=== PATIENT | female | born 1940 | race Caucasian/White ===

== ENCOUNTER → 2024-11-23 | Outpatient (CLI) | payer MEDICARE, SELFPAY ==
[2024-11-23 14:58] LABS: Collection Type, Urine Clean Catch; Squamous Epithelial Cell,Urine 0 /hpf (0-5)
[2024-11-23 15:32] LABS: Basophils % (Auto) 0 % (0-2.5); Eosinophils # (Auto) 0.1 Thou/mm3 (0.0-0.5); Eosinophils % (Auto) 1 % (0-10); Hematocrit 33.5 % (36.0-46.0); Immature Granulocytes % (Auto) 0 % (0-0); Immature Granulocytes Auto 0.03 Thou/mm3 (0.00-0.00); Lymphocytes # (Auto) 3.4 Thou/mm3 (1.0-4.8); Lymphocytes % (Auto) 44 % (10-50); Mean Corpuscular HGB Conc 32.8 g/dl (31.0-37.0); Mean Corpuscular Hemoglobin 32.1 pg (25.0-35.0); Mean Corpuscular Volume 98 fL (80-100); Monocytes # (Auto) 0.4 Thou/mm3 (0.0-0.8); Monocytes % (Auto) 6 % (0-12); Neutrophils # (Auto) 3.9 Thou/mm3 (1.8-7.7); Neutrophils % (Auto) 49 % (37-80); Nucleated Red Blood Cell % 0 /100 WBC (0); Platelet Count 281 Thou/mm3 (140-440); RDW Standard Deviation 49.6 fL (36.4-46.3); Red Blood Count 3.43 Miln/mm3 (4.00-5.20); White Blood Count 7.8 Thou/mm3 (3.6-11.0)
[2024-11-23 15:35] LABS: Bilirubin,Urine Negative (Negative); Blood,Urine Negative (Negative); Clarity,Urine Clear (Clear/Hazy); Color,Urine Yellow (Lt Yel-Yel); Glucose, Urine Negative (Negative); Ketones,Urine Negative (Negative); Leukocyte Esterase,Urine Positive (Negative); Nitrite,Urine Negative (Negative); PH,Urine 6.5 (5.0-7.0); Protein,Urine Negative (Neg - Trace); RBC,Urine 5 /hpf (0-3); Specific Gravity,Urine 1.017 (1.001-1.035); Urobilinogen,Urine Negative mg/dL (0.0-1.0); WBC,Urine 5 /hpf (0-5)
[2024-11-23 15:41] LABS: Parathyroid Hormone Intact 57.5 pg/ml (18.5-88.0)
[2024-11-23 15:49] LABS: Albumin, Serum 4.6 gm/dL (3.4-4.8); Anion Gap 7 (7-16); BUN/Creatinine Ratio 41 Ratio (12-20); Blood Urea Nitrogen 37 mg/dL (9-23); Calcium 9.5 mg/dL (8.3-10.6); Calcium (Corrected) 9.5 mg/dL (8.5-10.1); Carbon Dioxide 30.3 mMol/L (20.0-31.0); Chloride 103 mMol/L (98-107); Creatinine (Component) 0.9 mg/dL (0.6-1.3); Glucose 82 mg/dL (74-106); Osmolality,Calculated 287 (275-295); Phosphorous 4.2 mg/dL (2.4-5.1); Potassium 4.6 mMol/L (3.4-5.1); Sodium 140 mMol/L (136-145); eGFR > 60 See Note
[2024-11-23 15:54] LABS: Vitamin D 25 Hydroxy Total 58.7 ng/mL (7.3-40.2)
== END | disposition home or self-care (01) ==
LOC: COPL 13:50
PROVIDERS: PCP Family Medicine; Referring Provider Internal Medicine Nephrology; Visit Provider Internal Medicine Nephrology
DX: N18.31 Chronic kidney disease, stage 3a (principal); M19.90 Unspecified osteoarthritis, unspecified site; M54.9 Dorsalgia, unspecified
CPT/HCPCS: 36415; 80069; 81001; 82306; 83970; 85025

== ENCOUNTER → 2025-02-17 | Outpatient (CLI) | payer MEDICARE, SELFPAY ==
[2025-02-17 16:34] LABS: Basophils % (Auto) 1 % (0-2.5); Eosinophils # (Auto) 0.2 Thou/mm3 (0.0-0.5); Eosinophils % (Auto) 3 % (0-10); Hematocrit 36.7 % (36.0-46.0); Hemoglobin 11.9 g/dL (12.0-16.0); Immature Granulocytes % (Auto) 0 % (0-0); Immature Granulocytes Auto 0.02 Thou/mm3 (0.00-0.00); Lymphocytes # (Auto) 2.5 Thou/mm3 (1.0-4.8); Lymphocytes % (Auto) 33 % (10-50); Mean Corpuscular HGB Conc 32.4 g/dl (31.0-37.0); Mean Corpuscular Hemoglobin 31.7 pg (25.0-35.0); Mean Corpuscular Volume 98 fL (80-100); Monocytes # (Auto) 0.4 Thou/mm3 (0.0-0.8); Monocytes % (Auto) 5 % (0-12); Neutrophils # (Auto) 4.5 Thou/mm3 (1.8-7.7); Neutrophils % (Auto) 59 % (37-80); Nucleated Red Blood Cell % 0 /100 WBC (0); Platelet Count 341 Thou/mm3 (140-440); RDW Standard Deviation 46.6 fL (36.4-46.3); Red Blood Count 3.75 Miln/mm3 (4.00-5.20); White Blood Count 7.7 Thou/mm3 (3.6-11.0)
[2025-02-17 16:53] LABS: Alanine Aminotransferase 13 U/L (10-49); Albumin, Serum 4.4 gm/dL (3.4-4.8); Albumin/Globulin Ratio 1.6 (1.2-2.2); Alkaline Phosphatase 79 U/L (46-116); Anion Gap 7 (7-16); Aspartate Amino Transferase 23 U/L (0-34); BUN/Creatinine Ratio 23 Ratio (12-20); Bilirubin,Total 0.2 mg/dL (0.3-1.2); Blood Urea Nitrogen 25 mg/dL (9-23); Calcium 9.4 mg/dL (8.3-10.6); Calcium (Corrected) 9.4 mg/dL (8.5-10.1); Carbon Dioxide 28.6 mMol/L (20.0-31.0); Chloride 106 mMol/L (98-107); Creatinine (Component) 1.1 mg/dL (0.6-1.3); Globulin 2.7 gm/dL (2.3-3.5); Glucose 111 mg/dL (74-106); Osmolality,Calculated 288 (275-295); Potassium 4.4 mMol/L (3.4-5.1); Sodium 142 mMol/L (136-145); Total Protein 7.1 gm/dL (5.7-8.2); eGFR 50 See Note
== END | disposition home or self-care (01) ==
LOC: COPL 15:00
PROVIDERS: PCP Family Medicine; Referring Provider Student in an Organized Health Care Education/Training Program; Visit Provider Internal Medicine
DX: R13.19 Other dysphagia (principal); R11.2 Nausea with vomiting, unspecified; R42 Dizziness and giddiness
CPT/HCPCS: 36415; 80053; 85025

== ENCOUNTER → 2025-03-03 | Outpatient (CLI) | payer MEDICARE, SELFPAY ==
--- NOTE | 2025-03-03 12:00 | XR_ITS ---
Examination: CT abdomen and pelvis without contrast. Coronal 3-D reconstructions. Sagittal 2-D reconstructions. Date and time of exam:March 03, 2025 1255 hours Comparison April 28, 2024 INDICATIONS: Nausea vomiting beginning last month CTDI: vol (mGy): 4.88 DLP: (mGycm): 201 Technique: Axial images of the abdomen have been obtained, 3 mm slice thickness Intravenous contrast material has not been administered. Low dose protocols were performed. One or more of the following dose reduction techniques were used; automated exposure control, adjustment of the mA and/or KV according to patient size, use of iterative reconstruction technique. Findings: No focal liver or splenic lesion No pancreatic mass Multiple gallstones Gallbladder wall does not appear thickened Heavy abdominal aortic calcification No bowel obstruction No pericecal inflammatory change Colonic diverticulosis, no diverticulitis Intact urinary bladder Left hip arthroplasty generates artifacts in the pelvis IMPRESSION: Cholelithiasis, consider hepatobiliary sonography follow-up
--- NOTE | 2025-03-03 12:30 | XR_ITS ---
Examination: Carotid arterial duplex scan, ultrasound. Date and time of exam: March 03, 2025 1142 hours INDICATIONS: Dizziness episodes beginning a few months ago Technique: Multiple sonographic images have been obtained of the carotid arteries and vertebral arteries, B-mode/grayscale imaging and Doppler spectral analysis and color flow Peak systolic and diastolic velocities have been recorded. Systolic diastolic ratios have been calculated. Findings: Right peak systolic velocities: Distal internal carotid artery peak systolic velocity is 0.4 M/sec Proximal internal carotid artery peak systolic velocity is 0.4 M/sec Carotid bifurcation peak systolic velocity is 0.7 M/sec External carotid artery peak systolic velocity is 0.9 M/sec Vertebral artery flow is antegrade. Left peak systolic velocities: Distal internal carotid artery peak systolic velocity is 0.6 M/sec Proximal internal carotid artery peak systolic velocity is 0.5 M/sec Carotid bifurcation peak systolic velocity is 0.5 M/sec External carotid artery peak systolic velocity is 1.0 M/sec Vertebral artery flow is antegrade Doppler waveform analysis demonstrates no spectral broadening Impression: Right internal carotid artery demonstrates 0-10% stenosis. Left internal carotid artery demonstrates 0-10% stenosis.
== END | disposition home or self-care (01) ==
PROVIDERS: PCP Internal Medicine; Referring Provider Internal Medicine; Visit Provider Internal Medicine
DX: R13.19 Other dysphagia (principal); R11.2 Nausea with vomiting, unspecified; R42 Dizziness and giddiness; K80.20 Calculus of gallbladder without cholecystitis without obstruction
CPT/HCPCS: 74176; 93880

== ENCOUNTER → 2025-05-02 | Outpatient (CLI) | payer MEDICARE, SELFPAY ==
--- NOTE | 2025-05-02 14:18 | XR_ITS ---
EXAMINATION: Cervical spine, 5 views Technique: Cervical spine AP, AP odontoid, lateral, bilateral obliques, 5 views Exam date and time: May 02, 2025 1434 hours Comparison December 30, 2019 INDICATIONS: Neck pain several years. FINDINGS: Straightening normal cervical lordosis 3 mm anterolisthesis C2 on C3 No cervical fracture Intact odontoid Advanced degenerative disc disease C3-C4, C5-C6, C6-C7 with posterior osteophyte formation Significant bilateral neural foraminal stenosis at these levels IMPRESSION: Advanced degenerative disc disease C3-C4, C5-C6, C6-C7 with significant bilateral neural foraminal stenosis at these levels
== END | disposition home or self-care (01) ==
LOC: CDIM 14:09
PROVIDERS: PCP Family Medicine; Referring Provider Internal Medicine; Visit Provider Internal Medicine
DX: M50.31 Other cervical disc degeneration, high cervical region (principal); M48.02 Spinal stenosis, cervical region
CPT/HCPCS: 72050

== ENCOUNTER 2025-05-09 18:16 | Inpatient (IN) | payer MEDICARE, SELFPAY ==
[2025-05-09 18:26] VITALS: BP 207/102; PULSE 95; RESP 17; RESP 18; TEMP 37.6; O2SAT 93; O2SAT 95; BMI 17.9
--- NOTE | 2025-05-09 18:36 | EKG_ITS ---
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1940 Requested By: ED Temporary Provider Order Number: [id number] Reading MD: ED Temporary Provider Measurements Intervals [place] Rate: 78 P: 135 RI: 136 QRS: -21 QRSD: 101 T: 78 QT: 376 QTc: 431 Interpretive Statements ECTOPIC ATRIAL RHYTHM POSSIBLE LEFT ATRIAL ENLARGEMENT [-0.1mV P-WAVE IN V1/V2] INCOMPLETE RIGHT BUNDLE BRANCH BLOCK [90+ ms QRS DURATION, TERMINAL R IN V1/V2, 40+ ms S IN I/aVL/V4/V5/V6] PROBABLE LATERAL MYOCARDIAL INFARCTION , OF INDETERMINATE AGE [35 ms Q WAVE IN I/aVL/V5/V6] Compared to ECG 12/30/2023 11:52:09 Ectopic atrial rhythm now present Incomplete right bundle-branch block now present Myocardial infarct finding now present Sinus rhythm no longer present /store/S0/[id number]/ecg/[id number].pdf
--- NOTE | 2025-05-09 18:46 | PD.EDWEAK ---
ED Weakness RME/HPI General Chief complaint: Nausea/Vomiting/Diarrhea Stated complaint: GENERALIZED WEAKNESS Time Seen by Provider: 05/09/25 18:40 Arrival date/time: 05/09/25 18:16 RME / HPI RME / HPI Narrative: This section includes all my notes and documentations, including HPI, PE, and ED course. Dung Barragan MD HPI: 85 y/o female with Hx of Hypercholesterolemia and Hyperthyroidism BIBA from home presents with fever, chills, and weakness x 4 days. Denies cough, runny nose, dysuria, and diarrhea. No other complaints. ROS: All negative except as documented in HPI. Physical Exam: General: Alert and oriented. Appearance of severe malaise noted. Fever noted. Eyes: Conjunctivae and lids clear. ENT: No nasal congestion. Neck: Supple. Heart: RRR. Lungs: No respiratory distress. Good air movement with scattered rhonchi. Abdomen: Soft and nontender. Normal bowel sounds. No distension. No rebound or guarding. Back: No CVA tenderness. Skin: Warm and dry. Neuro: Alert and oriented X 3. I reviewed EMS notes. I reviewed all diagnostic test results: My interpretation of the EKG is: Sinus rhythm (78 bpm) with nonspecific ST-T changes. My interpretation of the chest x-ray is increased bronchial markings. Blood tests remarkable for WBC 13.4, ESR 86, CRP 29.1, procalcitonin 2.28. UA showed positive nitrite, leukocyte Estrace, 39 RBC, 142 WBC. Covid/Influenza: Negative. At this point, diagnoses include: Sepsis, UTI, lower respiratory infection. Treatment here included: IVF, Zofran 4 mg, Rocephin 1 G, Toradol 12 mg, Tylenol 1 g IV, and Zithromax 500 mg IV. Some improvement noted. 2016: I discussed the case with our hospitalist. About the presentation and exam and diagnostics and treatments here. And need of further care in the hospital. Will accept the patient. Dung Barragan MD Related Data Home Medications ?Medication ?Instructions ?Recorded ?Confirmed calcium 600 mg (as 1 tab PO QDAY 03/22/19 12/30/20 carbonate)-vitamin D3 5 mcg (200 unit) tablet (Calcium 600 + D(3)) krill 300 mg-omega 3 90 mg-dha 24 1 cap PO QDAY 03/22/19 12/30/20 mg-epa 50 [id number] capsule (MegaRed [place]-3 Krill Oil) simvastatin 40 mg tablet 40 mg PO QPM 03/22/19 12/30/20 levothyroxine 88 mcg tablet 88 mcg PO QDAY 05/13/19 12/30/20 multivitamin (Multiple Vitamins 1 tab PO QDAY 05/13/19 12/30/20 tablet) sertraline 100 mg tablet 200 mg PO QDAY 05/16/19 12/30/20 aspirin 81 mg tablet 81 mg PO QDAY 12/30/20 12/30/20 Previous Rx's ?Medication ?Instructions ?Recorded albuterol sulfate 90 mcg/actuation 2 puff INH Q4H PRN Shortness Of 01/01/21 aerosol inhaler (Ventolin HFA) Breath #1 g alprazolam 0.25 mg tablet 1 mg (4 x 0.25 mg) PO HS PRN 01/01/21 Anxiety #0 tabs cefpodoxime 200 mg tablet 200 mg PO BID #6 tabs 01/01/21 dexamethasone 6 mg tablet 6 mg PO QDAY #5 tabs 01/01/21 Allergies Allergy/AdvReac Type Severity Reaction Status Date / Time No Known Allergies Allergy Verified 05/09/25 18:32 Review of Systems Review of Systems Systems Reviewed: All systems reviewed, normal except as documented Past Medical History Past Medical History CARDIAC: Positive Cardiac Disorders and Hypercholesterolemia REPRODUCTIVE: Positive Endometriosis and Previous Pregnancies MUSCULOSKELETAL: Positive Musculoskeletal Disorders, Arthritis, Osteoporosis and Scoliosis ENT: Positive Cataracts ENDOCRINE: Positive Endocrine Disorders, Hyperthyroidism and Hypothyroidism PSYCHO/SOCIAL: Positive Depression and Anxiety OTHER HISTORY: Positive Falls, Chicken Pox, Measles and Mumps Family History FAMILY HISTORY: Positive Family Cardiac Disorders and Family Cancer Surgical History SURGICAL: Positive Hysterectomy Social History SECOND HAND EXPOSURE: Yes ED Exam Narrative Physical exam: Refer to HPI Course Course Course Narrative: CXR is ordered for determining the etiology of shortness of breath. Quality Measures none Orders Category Date Time Status Bedside COVID-19 Antigen Test NOW Care 05/09/25 18:47 Active Bedside Influenza A&B Antigen Test NOW Care 05/09/25 18:47 Completed COVID-19 Screening Questionnaire NOW Care 05/09/25 20:51 Active Decision to Admit X1 Care 05/09/25 20:51 Active EKG (ED ONLY) *Do not use* NOW Care 05/09/25 18:36 Completed In and Out Catheter X1 Care 05/09/25 19:02 Completed Miscellaneous Nursing Order NOW Care 05/09/25 18:47 Active Saline [Insert IV] NOW Care 05/09/25 18:47 Completed Straight [In and Out Catheter] X1 Care 05/09/25 18:47 Completed EKG (ED Only) Stat Exams 05/09/25 18:36 Draft XR chest 1V portable Stat Exams 05/09/25 18:51 Completed Amylase Stat Lab 05/09/25 19:21 Completed BNP [B-Type Natriuretic Peptide] Stat Lab 05/09/25 19:21 Completed Beta Hydroxybutyrate Stat Lab 05/09/25 19:21 Completed Bilirubin,Direct Stat Lab 05/09/25 19:21 Completed Blood Culture (Lab) Stat Lab 05/09/25 19:29 Received CBC Stat Lab 05/09/25 19:21 Completed CMP [Comprehensive Metabolic Panel] Stat Lab 05/09/25 19:21 Completed CRP [C-Reactive Protein] Stat Lab 05/09/25 19:21 Completed ESR [Sed Rate (ESR)] Stat Lab 05/09/25 19:21 Completed Free T4 (Free Thyroxine) Stat Lab 05/09/25 19:21 Completed Lactate (Lactic Acid) Stat Lab 05/09/25 19:21 Completed Lipase Stat Lab 05/09/25 19:21 Completed Magnesium Stat Lab 05/09/25 19:21 Completed Procalcitonin Stat Lab 05/09/25 19:21 Completed TSH [Thyroid Stimulating Hormone] Stat Lab 05/09/25 19:21 Completed Troponin I Stat Lab 05/09/25 19:21 Completed UA, C/S IF [Urinalysis, C/S if Indicated] Stat Lab 05/09/25 19:06 Completed Urine Culture Stat Lab 05/09/25 19:06 Received Acetaminophen Ivpb [Ofirmev Inj] Med 05/09/25 19:24 Discontinued 1,000 mg in 100 ml IV X1 Azithromycin Inj [Zithromax Inj] 500 mg Med 05/09/25 20:11 Discontinued Sodium Chloride 0.9% 250 ml [Ns] 250 ml IV X1 Ketorolac Inj [Toradol Inj] Med 05/09/25 19:24 Discontinued 12 mg IVP X1 ONE Ondansetron Inj [Zofran Inj] Med 05/09/25 18:47 Discontinued 4 mg IVP X1 ONE Sodium Chloride 0.9% 1000 ml [Ns] 1,000 ml Med 05/09/25 18:47 Discontinued IV 999 mls/hr Sodium Chloride 0.9% 250 ml [Ns] 250 ml Med 05/09/25 18:50 Discontinued IV 1,000 mls/hr cefTRIAXone/D5w 1gm IV premix [Rocephin/D5w 1gm IV Med 05/09/25 18:47 Discontinued premix] 1 gm in 50 ml IV X1 cloNIDine HCL [Catapres] Med 05/09/25 18:50 Discontinued 0.2 mg PO X1 ONE Vital Signs Vital signs: Vital Signs Temperature 99.7 F 05/09/25 18:26 Respiratory Rate 17 05/09/25 18:26 Blood Pressure 207/102 H 05/09/25 18:26 Pulse Oximetry (%) 93 L 05/09/25 18:26 Weakness MDM Narrative MDM Narrative:: Scribe Attestation: Margoth John am scribing for and in the presence of Dr. Barragan. Provider Notation: Although this document has been carefully reviewed, there may still be some phonetic and other typographical errors.? These errors are purely grammatical due to imperfections in the software program and should not be construed in any way to? compromise the substance of the patient's medical care during this visit. 85 y/o female with Hx of Hypercholesterolemia and Hyperthyroidism BIBA from home presents with fever, chills, and weakness x 4 days. Denies cough, runny nose, dysuria, and diarrhea. No other complaints. Patient data External records reviewed:: [facility] previous records (No recent ED records available for review.) and EMS form Clinical information provided by:: patient and EMS Social determinants that could affect healthcare access:: none Patient has the following chronic illnesses:: Hypercholesterolemia, Endometriosis, Arthritis, Osteoporosis, Scoliosis, Cataracts, Hyperthyroidism, Hypothyroidism, Depression and Anxiety How is presenting disease/condition affected by chronic disease/condition?: exacerbated by Evaluation data The following diagnostics were reviewed and interpreted by me:: lab results, radiology exam(s) and EKG tracing(s) (My interpretation of the EKG is: Sinus rhythm (78 bpm) with nonspecific ST-T changes. Dung Barragan MD) Lab and/or radiology exams considered but not ordered:: None Interpretation Summary: I reviewed all diagnostic test results: My interpretation of the EKG is: Sinus rhythm (78 bpm) with nonspecific ST-T changes. My interpretation of the chest x-ray is increased bronchial markings. Blood tests remarkable for WBC 13.4, ESR 86, CRP 29.1, procalcitonin 2.28. UA showed positive nitrite, leukocyte Estrace, 39 RBC, 142 WBC. Covid/Influenza: Negative. Medications / Prescriptions Medications or Prescriptions considered but not ordered:: None Medication administrations:: Medication Administration History Discontinued Medications Clonidine (Clonidine Hcl 0.1 Mg Tablet) 0.2 mg PO X1 ONE Stop: 05/09/25 18:51 Last Admin: 05/09/25 19:27 Dose: Not Given Documented By: ZENOBIA Non-Admin Reason: Vital Signs Ceftriaxone Sodium/Dextrose (Rocephin/D5w 1gm Iv Premix) 1 gm in 50 mls @ 100 mls/hr IV X1 ONE Stop: 05/09/25 19:16 Last Infusion: 05/09/25 20:48 Dose: Infused Documented By: Admin: 05/09/25 20:05 Dose: 100 mls/hr Documented By: ZENOBIA Sodium Chloride (Ns) 1,000 mls @ 999 mls/hr IV .Q1H1M ONE Stop: 05/09/25 19:47 Last Infusion: 05/09/25 20:48 Dose: Infused Documented By: Admin: 05/09/25 19:39 Dose: 999 mls/hr Documented By: ZENOBIA Sodium Chloride (Ns) 250 mls @ 1,000 mls/hr IV .Q15M ONE Stop: 05/09/25 19:04 Last Infusion: 05/09/25 20:10 Dose: Infused Documented By: Admin: 05/09/25 19:39 Dose: 1,000 mls/hr Documented By: ZENOBIA Acetaminophen (Ofirmev Inj) 1,000 mg in 100 mls @ 250 mls/hr IV X1 ONE Stop: 05/09/25 19:47 Last Infusion: 05/09/25 20:10 Dose: Infused Documented By: Admin: 05/09/25 19:46 Dose: 250 mls/hr Documented By: ZENOBIA Azithromycin 500 mg/ Sodium (Chloride) 250 mls @ 250 mls/hr IV X1 ONE Stop: 05/09/25 21:10 Last Admin: 05/09/25 20:56 Dose: 250 mls/hr Documented By: ZENOBIA Ketorolac Tromethamine (Ketorolac Inj 30 Mg/Ml Vial) 12 mg IVP X1 ONE Stop: 05/09/25 19:25 Last Admin: 05/09/25 19:44 Dose: 12 mg Documented By: ZENOBIA Ondansetron HCl (Ondansetron Inj 2 Mg/Ml Inj 2 Ml) 4 mg IVP X1 ONE; Protocol Stop: 05/09/25 18:48 Last Admin: 05/09/25 19:40 Dose: Not Given Documented By: ZENOBIA Non-Admin Reason: Patient Refused Treatment here from me included: IVF, Zofran 4 mg, Rocephin 1 G, Toradol 12 mg, Tylenol 1 g IV, and Zithromax 500 mg IV. Consultations Consultation(s) initiated? (list below): Yes Consultation #1 (Physician, Specialty, Details): 2016: I discussed the case with our hospitalist. About the presentation and exam and diagnostics and treatments here. And need of further care in the hospital. Will accept the patient. Diagnosis Weakness Differential Diagnosis: acute myocardial infarction, anemia, hypoglycemia, hypothyroidism, rhabdomyolysis, sepsis, dehydration and other (UTI, pneumonia, COVID, influenza, electrolyte abnormalities) Most likely diagnosis given after review of the tests above:: Sepsis, UTI, low respiratory infection Admission Indicated Admission indicated?: indicated Explain why admission is indicated or not indicated:: Sepsis, UTI, low respiratory infection Admission Request Was there a request for admission?: Yes Admission Attestation Admission request attestation: Discussed case with Hospitalist service regarding admission. Discussed patients ED course, exam findings, labs, and radiology results. The Hospitalist [agrees] to accept the patient for admission. Disposition Plan Disposition Plan: Admit Discharge Plan Plan Patient Disposition: Admit Acute Care w/in Hospital Prescriptions/Referrals Prescriptions/Med Rec: No Action multivitamin [Multiple Vitamins] Tablet 1 tab PO QDAY levothyroxine 88 mcg Tablet 88 mcg PO QDAY sertraline 100 mg Tablet 200 mg PO QDAY calcium carbonate-vitamin D3 [Calcium 600 + D(3)] 600 mg(1,500mg) -200 unit Tablet 1 tab PO QDAY simvastatin 40 mg Tablet 40 mg PO QPM [id number] [MegaRed [place]-3 Krill Oil] [id number] mg Capsule 1 cap PO QDAY aspirin 81 mg Tablet 81 mg PO QDAY dexamethasone 6 mg Tablet 6 mg PO QDAY Qty: 5 0RF albuterol sulfate [Ventolin HFA] 90 mcg/actuation Hfa Aerosol Inhaler 2 puff INH Q4H PRN (Reason: Shortness Of Breath) Qty: 1 0RF cefpodoxime 200 mg tablet 200 mg PO BID Qty: 6 0RF Rx Instructions: Start 01/02/21. Must administer with a meal/food. alprazolam 0.25 mg Tablet 1 mg PO HS PRN (Reason: Anxiety) Qty: 0 0RF Referrals: Efrain Pride MD [Primary Care Provider] - In 1 week Problem List Clinical Impression: Sepsis, UTI (urinary tract infection), Lower respiratory infection Patient/Caregiver Discharge Instructions Print Language: Italian Stand Alone Forms: [employer] Award Info., Patient Portal Info Letter
--- NOTE | 2025-05-09 18:51 | XR_ITS ---
Examination: AP chest single view TECHNIQUE: Portable sitting AP chest single view Date and time: May 09, 2025, 1913 hours Comparison December 28, 2020 INDICATIONS: Coughing fever beginning 3 days ago. FINDINGS: Mild accentuation of basilar bronchovascular markings. No lobar pneumonia. Prominent lower thoracic dextroscoliosis. Normal heart size IMPRESSION: Basilar bronchitis pattern
[2025-05-09 18:55] VITALS: BP 152/68; PULSE 77; RESP 19; TEMP 39.1; O2SAT 94
[2025-05-09 19:23] LABS: Collection Type, Urine Clean Catch; Squamous Epithelial Cell,Urine 0 /hpf (0-5)
[2025-05-09 19:36] LABS: Bilirubin,Urine Negative (Negative); Blood,Urine 2+ (Negative); Clarity,Urine Turbid (Clear/Hazy); Color,Urine Lt-Yellow (Lt Yel-Yel); Culture Indicated,Urine Yes; Glucose, Urine Negative (Negative); Ketones,Urine 1+ (Negative); Leukocyte Esterase,Urine Positive (Negative); Nitrite,Urine Positive (Negative); PH,Urine 6.0 (5.0-7.0); Protein,Urine 1+ (Neg - Trace); RBC,Urine 39 /hpf (0-3); Specific Gravity,Urine 1.014 (1.001-1.035); Urobilinogen,Urine Negative mg/dL (0.0-1.0); WBC,Urine 142 /hpf (0-5)
[2025-05-09] MEDS: SODIUM CHLORIDE 0.9% 250 ML 250 ML 1000 ML IV (19:39)
[2025-05-09] MEDS: SODIUM CHLORIDE 0.9% 1000 ML 1,000 ML 999 ML IV (19:39)
[2025-05-09 19:42] LABS: Lactate (Lactic Acid) 1.1 mMol/L (0.4-2.0)
[2025-05-09 19:44] LABS: Basophils # (Auto) 0.0 Thou/mm3 (0.0-0.2); Basophils % (Auto) 0 % (0-2.5); Eosinophils # (Auto) 0.0 Thou/mm3 (0.0-0.5); Eosinophils % (Auto) 0 % (0-10); Hematocrit 32.8 % (36.0-46.0); Hemoglobin 11.3 g/dL (12.0-16.0); Immature Granulocytes Auto 0.13 Thou/mm3 (0.00-0.00); Lymphocytes # (Auto) 1.1 Thou/mm3 (1.0-4.8); Lymphocytes % (Auto) 8 % (10-50); Mean Corpuscular HGB Conc 34.5 g/dl (31.0-37.0); Mean Corpuscular Hemoglobin 32.7 pg (25.0-35.0); Mean Corpuscular Volume 95 fL (80-100); Monocytes # (Auto) 0.9 Thou/mm3 (0.0-0.8); Monocytes % (Auto) 7 % (0-12); Neutrophils # (Auto) 11.2 Thou/mm3 (1.8-7.7); Neutrophils % (Auto) 84 % (37-80); Nucleated Red Blood Cell # 0.00 Thou/mm3 (0.00-0.00); Nucleated Red Blood Cell % 0 /100 WBC (0); Platelet Count 221 Thou/mm3 (140-440); RDW Standard Deviation 46.5 fL (36.4-46.3); Red Blood Count 3.46 Miln/mm3 (4.00-5.20); White Blood Count 13.4 Thou/mm3 (3.6-11.0)
[2025-05-09] MEDS: KETOROLAC INJ 30 MG/ML VIAL 12 MG IVP (19:44)
[2025-05-09] MEDS: ACETAMINOPHEN IVPB 1,000 MG/100 ML VIAL 250 MG IV (19:46)
[2025-05-09 19:51] LABS: Beta Hydroxybutyrate 1.0 mmol/L (<0.6)
[2025-05-09 20:03] LABS: Sed Rate (ESR) 86 mm/hr (0-30)
[2025-05-09 20:04] LABS: B-Type Natriuretic Peptide 200 pg/mL (0-100)
[2025-05-09] MEDS: cefTRIAXone/D5w 1gm IV premix 1 GM/50 ML BAG IV (20:05)
[2025-05-09 20:21] LABS: Alanine Aminotransferase 12 U/L (10-49); Albumin, Serum 4.1 gm/dL (3.4-4.8); Albumin/Globulin Ratio 1.5 (1.2-2.2); Alkaline Phosphatase 68 U/L (46-116); Amylase 55 U/L (30-118); Anion Gap 12 (7-16); Aspartate Amino Transferase 23 U/L (0-34); BUN/Creatinine Ratio 18 Ratio (12-20); Bilirubin,Direct 0.2 mg/dL (0.0-0.3); Bilirubin,Total 0.6 mg/dL (0.3-1.2); Blood Urea Nitrogen 21 mg/dL (9-23); C-Reactive Protein 29.1 mg/dL (0.0-0.9); Calcium 9.2 mg/dL (8.3-10.6); Calcium (Corrected) 9.2 mg/dL (8.5-10.1); Carbon Dioxide 24.9 mMol/L (20.0-31.0); Chloride 101 mMol/L (98-107); Creatinine (Component) 1.2 mg/dL (0.6-1.3); Estimated Creatinine Clearance 24.2 mL/min (>60); Free T4 (Free Thyroxine) 1.56 ng/dL (0.89-1.76); Globulin 2.7 gm/dL (2.3-3.5); Glucose 124 mg/dL (74-106); Lipase 36 U/L (12-53); Magnesium 1.9 mg/dL (1.6-2.6); Osmolality,Calculated 279 (275-295); Potassium 3.8 mMol/L (3.4-5.1); Procalcitonin 2.28 ng/ml (0.0-0.49); Sodium 138 mMol/L (136-145); Thyroid Stimulating Hormone 0.99 uIU/mL (0.55-4.78); Total Protein 6.8 gm/dL (5.7-8.2); Troponin I 0.029 ng/mL (0.0-0.045); eGFR 45 See Note
[2025-05-09] MEDS: AZITHROMYCIN INJ 500 MG in SODIUM CHLORIDE 0.9% 250 ML 250 ML 250 MG IV (20:56)
--- NOTE | 2025-05-09 21:22 | PD.RESHP ---
Documentation for date of: 05/09/25 HPI History of Present Illness Chief complaint: Fever, urinary tract infection History of present illness: 85-year-old female with past medical history of hypothyroidism, depression/anxiety, hyperlipidemia, left hip replacement presenting to the ED on 05/09 with fever, weakness and increased urinary frequency. Patient's daughter is bedside and provides some history regarding her presentation. Apparently, patient had an appointment with Dr. Soto for a stress test on 05/04 and since that appointment she has been feeling more weak than normal. Patient does not have any cardiac history but states that her PCP just wanted her to get her heart checked. Patient's been having increased urinary frequency and states that she is not able to keep her urine inside. She also attributes to 2 days of fever and increased weakness. Normally, patient is able to ambulate using a walker but she has been largely bedbound since progression of symptoms. Medical history: As stated above Surgical history: Left hip replacement, total abdominal hysterectomy, no surgery Allergies: NKDA Medications: Pending med rec Family history: Noncontributory Social history: Patient lives at home with her son, denies any alcohol, tobacco or illicit drug use, able to ambulate using a walker ROS: All 12 systems assessed and the patient denies unless otherwise stated in HPI In the ED, patient initially presented hypertensive 207/102, regular heart rate, respiratory rate 17, mildly febrile 99.7 ?F, saturating 93 on room air. Pertinent lab findings included WBC of 13.4, hemoglobin 11.3 with MCV of 95, BUN 21, creatinine 1.2, glucose 124, lactic acid 1.1, troponin 0.02, BNP 200, Pro-Jani 2.28, TSH 0.99 and free T41.56. Urinalysis showed positive leukocyte esterase, nitrite, pyuria but no bacteria seen. Chest x-ray showed basilar bronchitis pattern EKG showed ectopic atrial rhythm with possible left atrial enlargement and incomplete right bundle branch block without any concerning ST changes. Patient will be admitted for observation and treatment of urinary tract infection with IV antibiotics along with physical therapy consultation. Exam Vital Signs Temp Pulse Resp BP Pulse Ox O2 Del Method 102.3 F H 77 19 152/68 H 94 L Room Air 05/09/25 18:55 05/09/25 18:55 05/09/25 18:55 05/09/25 18:55 05/09/25 18:55 05/09/25 18:55 Narrative Exam Physical Exam: GENERAL: Awake, answering questions appropriately, frail-appearing HEENT: NC/AT. Moist mucosa. PERRLA/EOMI. CARDIO: Heart RRR, Grade II/IV systolic ejection murmur, no JVD. PULM: No coughing or visible SOB. Lungs CTA B/L. GI: Abdomen soft, tender to palpation in suprapubic region and left lower quadrant, no rebound or guarding noted. Borborygmi apparent. SKIN/MSK/EXT: No wounds/discoloration/rashes/edema/amputations. +Pedal pulses present B/L. NEURO: Oriented x3, Moves extremities x4, no focal neurologic deficits noted Results: Labs 05/09/25 19:21 05/09/25 19:21 Labs: Short CBC 05/09/25 Range/Units 19:21 WBC 13.4 H (3.6-11.0) Thou/mm3 Hgb 11.3 L (12.0-16.0) g/dL Hct 32.8 L (36.0-46.0) % Plt Count 221 (140-440) Thou/mm3 BMP 05/09/25 19:21 Sodium 138 Potassium 3.8 Chloride 101 Carbon Dioxide 24.9 BUN 21 Creatinine 1.2 Glucose 124 H Calcium 9.2 Cardiac Enzymes 05/09/25 Range/Units 19:21 Troponin I 0.029 (0.0-0.045) ng/mL Liver Function 05/09/25 Range/Units 19:21 Total Bilirubin 0.6 (0.3-1.2) mg/dL Direct Bilirubin 0.2 (0.0-0.3) mg/dL AST 23 (0-34) U/L ALT 12 (10-49) U/L Alkaline Phosphatase 68 (46-116) U/L Albumin 4.1 (3.4-4.8) gm/dL Urine 05/09/25 Range/Units 19:06 Urine Color Lt-Yellow (Lt Yel-Yel) Urine Clarity Turbid A (Clear/Hazy) Urine pH 6.0 (5.0-7.0) Ur Specific [place] 1.014 (1.001-1.035) Urine Protein 1+ A (Neg - Trace) Urine Glucose (UA) Negative (Negative) Quality Measures Quality Measures none Advance care planning discussed with:: patient and child (Daughter) Medications Home Medications and Allergies Home Medications ?Medication ?Instructions ?Recorded ?Confirmed ?Type calcium 600 mg (as 1 tab PO QDAY 03/22/19 12/30/20 History carbonate)-vitamin D3 5 mcg (200 unit) tablet (Calcium 600 + D(3)) krill 300 mg-omega 3 90 mg-dha 24 1 cap PO QDAY 03/22/19 12/30/20 History mg-epa 50 lp-yutdkyd-jpcza capsule (MegaRed [place]-3 Krill Oil) simvastatin 40 mg tablet 40 mg PO QPM 03/22/19 12/30/20 History levothyroxine 88 mcg tablet 88 mcg PO QDAY 05/13/19 05/09/25 History multivitamin (Multiple Vitamins 1 tab PO QDAY 05/13/19 12/30/20 History tablet) sertraline 100 mg tablet 200 mg PO QDAY 05/16/19 05/09/25 History aspirin 81 mg tablet 81 mg PO QDAY 12/30/20 12/30/20 History alprazolam 0.5 mg tablet 0.25 mg PO DAILY Stress 05/09/25 05/09/25 History simvastatin 20 mg tablet 20 mg PO QAM High cholesterol 05/09/25 05/09/25 History Allergies Allergy/AdvReac Type Severity Reaction Status Date / Time No Known Allergies Allergy Verified 05/09/25 18:32 Visit Medications Acetaminophen (Acetaminophen 325 Mg Tablet) 650 mg PO Q6H PRN PRN Reason: Pain 1-3 and/or Fever >100.1 Stop: 06/08/25 21:15 Heparin Sodium (Porcine) (Heparin Sod Inj 5000 Unit/Ml Vial) 5,000 unit SC Q12HR MARY LOU Stop: 05/24/25 08:59 Lactated Ringer's (Lactated Ringers) 1,000 mls @ 75 mls/hr IV .[id number] MARY LOU Stop: 06/08/25 21:29 Ceftriaxone Sodium/Dextrose (Rocephin/D5w 1gm Iv Premix) 1 gm in 50 mls @ 100 mls/hr IV QDAY MARY LOU Stop: 05/17/25 08:59 Magnesium Sulfate (Magnesium Sulfate Ivpb) 4 gm in 50 mls @ 12.5 mls/hr IV X1 ONE Stop: 05/10/25 01:21 Ondansetron HCl (Ondansetron Inj 2 Mg/Ml Inj 2 Ml) 4 mg IVP Q6H PRN; Protocol PRN Reason: NAUSEA OR VOMITING Stop: 06/08/25 21:15 Sennosides (Senna Tablet) 1 tab PO QDAY PRN; Protocol PRN Reason: constipation Stop: 06/08/25 21:15 Discontinued Medications Clonidine (Clonidine Hcl 0.1 Mg Tablet) 0.2 mg PO X1 ONE Stop: 05/09/25 18:51 Last Admin: 05/09/25 19:27 Dose: Not Given Ceftriaxone Sodium/Dextrose (Rocephin/D5w 1gm Iv Premix) 1 gm in 50 mls @ 100 mls/hr IV X1 ONE Stop: 05/09/25 19:16 Last Infusion: 05/09/25 20:48 Dose: Infused Sodium Chloride (Ns) 1,000 mls @ 999 mls/hr IV .Q1H1M ONE Stop: 05/09/25 19:47 Last Infusion: 05/09/25 20:48 Dose: Infused Sodium Chloride (Ns) 250 mls @ 1,000 mls/hr IV .Q15M ONE Stop: 05/09/25 19:04 Last Infusion: 05/09/25 20:10 Dose: Infused Acetaminophen (Ofirmev Inj) 1,000 mg in 100 mls @ 250 mls/hr IV X1 ONE Stop: 05/09/25 19:47 Last Infusion: 05/09/25 20:10 Dose: Infused Azithromycin 500 mg/ Sodium (Chloride) 250 mls @ 250 mls/hr IV X1 ONE Stop: 05/09/25 21:10 Last Admin: 05/09/25 20:56 Dose: 250 mls/hr Ketorolac Tromethamine (Ketorolac Inj 30 Mg/Ml Vial) 12 mg IVP X1 ONE Stop: 05/09/25 19:25 Last Admin: 05/09/25 19:44 Dose: 12 mg Ondansetron HCl (Ondansetron Inj 2 Mg/Ml Inj 2 Ml) 4 mg IVP X1 ONE; Protocol Stop: 05/09/25 18:48 Last Admin: 05/09/25 19:40 Dose: Not Given Assessment & Plan Plan 85-year-old female with past medical history of hypothyroidism, depression/anxiety, hyperlipidemia, left hip replacement presenting to the ED on 05/09 with fever, weakness and increased urinary frequency will be admitted for observation and treatment of urinary tract infection with IV antibiotics along with physical therapy consultation. #Urinary tract infection As noted above, patient has been having urinary tract infection symptoms with increased weakness and increased urinary frequency Associated with some fevers, elevated WBC count, Pro-Jani Urinalysis showed positive leukocyte esterase, nitrite, pyuria but no bacteria seen. Chest x-ray showed basilar bronchitis pattern In the ED, patient was given x 1 IV ceftriaxone and azithromycin along with 1.25 L of NS Plan: Started IV ceftriaxone 1 g daily Follow-up on urine and blood cultures IV LR at 75 cc an hour for 1 L #Hypertensive urgency #Hypertension Patient states that in the past has been told she is hypotensive which has been the reason she was referred to Dr. Soto as noted below Presented to the ED in hypertensive urgency systolic 207 and diastolic 102 Currently blood pressure at 146/76 Plan: Consider starting antihypertensives as required #Possible aortic stenosis Patient denies having any shortness of breath, or any other concerning cardiac symptoms at this time On examination, patient does not seem volume overloaded but there is a grade 2 out of 6 systolic ejection murmur EKG showed ectopic atrial rhythm with possible left atrial enlargement and incomplete right bundle branch block without any concerning ST changes. BNP does show mild elevation at 200 Patient follows up with Dr. Soto outpatient and has recently completed outpatient cardiac stress test Plan: Follow-up with Dr. Soto once discharged #Hx of Hypothyroidism Chronic medical condition, patient on levothyroxine Plan: Restarted home medication #Hx of Depression/anxiety Patient on alprazolam and sertraline per home medication list Plan: Restarted home medication #Normocytic anemia Differentials include iron deficiency anemia, anemia of chronic disease, iron or vitamin deficiency, less likely to be hemolytic anemia versus myelosuppression Plan: Follow-up on iron panel, reticulocyte count and ferritin Transfuse if hemoglobin less than 7 Health Maintenance: Lines: PIV Diet: Cardiac Bowel: Senna as needed GI prophylaxis: Not needed DVT prophylaxis: Heparin subcu Dispo: IV antibiotics for UTI, PT eval Code: DNR Patient seen and examined with attending Dr. Alex Decker, DO PGY-2 Internal Medicine - GME Attending Provider Attestation/Addendum After examination of the patient and review of the clinical data I feel that this patient needs to be observed in the hospital for further treatment/evaluation. I have discussed and was present for the essential components of the history, physical examination, diagnosis, and treatment plan with the resident. I agree with the patient's care as documented by the resident and amended herein by me. Lucas Johnson DO. Although this document has been carefully reviewed, there may still be some phonetic and other typographical errors. These errors are purely grammatical due to imperfections in the software program and should not be construed in any way to compromise the substance of the patient's medical care during this visit. Patient seen and evaluated in the ED For acute calculus cholecystitis, choledocholithiasis and possible urinary tract infection. The patient is an 85-year-old male with a significant past medical history of hypothyroidism, hyperlipidemia, depression, anxiety, total hip arthroplasty in 2019, presented to the ED for complaints of urinary frequency, fever, chills and generalized weakness for approximately 1 week prior to admission. Patient was accompanied by her daughter who was at bedside. Patient subsequently admitted for urinary tract infection and hypertensive urgency. Of note, patient apparently lives with her son and is able to perform some ADLs, cannot cook for herself any longer or drive and gets around the house with a walker per her daughter who is at bedside. In the ED, initial BP 207/102, Tmax 102.3, patient on room air, SpO2 97%. Initial labs significant for WBC of 13.4, hemoglobin 11.3, elevated ESR 86, normal sodium and potassium, bicarb 24.9, BUN 21, creatinine 1.2, baseline appears to be 0.9-1.1, BNP 200, CRP 29.1 and procalcitonin 2.28. UA was also positive significant for WBC 142, leuk esterase positive, RBCs 39, 2+ blood and nitrite positive. A chest x-ray was performed demonstrating possible bronchitis pattern, EKG looked NSR on my read. Patient will be admitted to [facility] telemetry for urinary tract infection likely secondary to gram-negative organisms and hypertensive urgency (resolved at time of admission), Patient is not septic. Patient was started on ceftriaxone, blood and urine cultures pending, will continue gentle fluids, IVF 75 mL/h, and iron panel will also be ordered for anemia, potassium has been repleted, will reconcile home medications and restart as appropriate.
[2025-05-09 21:27] VITALS: BP 146/76; PULSE 74; RESP 18; TEMP 37.6; O2SAT 97
[2025-05-09] MEDS: RINGERS LACTATED 1000 ML 1,000 ML 75 ML IV (22:05)
[2025-05-09] MEDS: Magnesium Sulfate 4 GM Ivpb 4 GM/50 ML BAG IV (22:05)
[2025-05-09 23:17] LABS: Iron < 2 mcg/dL (50-170); Percent Iron Saturation 0 % (20-55); Total Iron Binding Capacity 227 mcg/dL (250-425); Unsaturated Iron Binding 225 (225-295)
[2025-05-10] VITALS (7 sets, daily range): BP systolic 113–164; BP diastolic 54–96; PULSE 55–92; RESP 16–22; TEMP 36.1–37.4; O2SAT 91–98; BMI 18.5; BMI 13.0
[2025-05-10] MEDS: LEVOTHYROXINE SODIUM 88 MCG TABLET PO (05:23)
[2025-05-10 06:28] LABS: Basophils # (Auto) 0.0 Thou/mm3 (0.0-0.2); Basophils % (Auto) 0 % (0-2.5); Eosinophils # (Auto) 0.0 Thou/mm3 (0.0-0.5); Eosinophils % (Auto) 0 % (0-10); Hematocrit 32.0 % (36.0-46.0); Hemoglobin 10.6 g/dL (12.0-16.0); Immature Granulocytes Auto 0.07 Thou/mm3 (0.00-0.00); Immature Reticulocyte Fraction 11.6 % (3.0-15.9); Lymphocytes # (Auto) 2.0 Thou/mm3 (1.0-4.8); Lymphocytes % (Auto) 16 % (10-50); Mean Corpuscular HGB Conc 33.1 g/dl (31.0-37.0); Mean Corpuscular Hemoglobin 33.0 pg (25.0-35.0); Mean Corpuscular Volume 100 fL (80-100); Monocytes # (Auto) 0.8 Thou/mm3 (0.0-0.8); Monocytes % (Auto) 7 % (0-12); Neutrophils # (Auto) 9.2 Thou/mm3 (1.8-7.7); Neutrophils % (Auto) 76 % (37-80); Nucleated Red Blood Cell # 0.00 Thou/mm3 (0.00-0.00); Nucleated Red Blood Cell % 0 /100 WBC (0); Platelet Count 225 Thou/mm3 (140-440); RDW Standard Deviation 48.8 fL (36.4-46.3); Red Blood Count 3.21 Miln/mm3 (4.00-5.20); Reticulocyte % (Auto) 1.3 % (0.5-1.5); Reticulocyte Absolute Auto 40.8 Biln/L (25.0-75.0); Reticulocyte Hgb Content 30.5 pg (28.0-35.0); White Blood Count 12.2 Thou/mm3 (3.6-11.0)
[2025-05-10 06:46] LABS: Ferritin 135 ng/mL (7.3-270.7); Iron 10 mcg/dL (50-170); Percent Iron Saturation 4 % (20-55); Total Iron Binding Capacity 201 mcg/dL (250-425); Unsaturated Iron Binding 191 (225-295)
[2025-05-10 06:58] LABS: Alanine Aminotransferase 13 U/L (10-49); Albumin, Serum 3.5 gm/dL (3.4-4.8); Albumin/Globulin Ratio 1.4 (1.2-2.2); Alkaline Phosphatase 62 U/L (46-116); Anion Gap 11 (7-16); Aspartate Amino Transferase 19 U/L (0-34); BUN/Creatinine Ratio 19 Ratio (12-20); Bilirubin,Total 0.4 mg/dL (0.3-1.2); Blood Urea Nitrogen 19 mg/dL (9-23); Calcium 8.5 mg/dL (8.3-10.6); Calcium (Corrected) 8.9 mg/dL (8.5-10.1); Carbon Dioxide 26.0 mMol/L (20.0-31.0); Chloride 105 mMol/L (98-107); Creatinine (Component) 1.0 mg/dL (0.6-1.3); Estimated Creatinine Clearance 29.9 mL/min (>60); Globulin 2.5 gm/dL (2.3-3.5); Glucose 103 mg/dL (74-106); Osmolality,Calculated 285 (275-295); Potassium 4.2 mMol/L (3.4-5.1); Sodium 142 mMol/L (136-145); Total Protein 6.0 gm/dL (5.7-8.2); eGFR 56 See Note
--- NOTE | 2025-05-10 08:34 | PD.RESPRO ---
Documentation for date of: 05/10/25 Senior resident attestation: Patient evaluated and examined at the bedside, plan of care discussed with rest of the team including my attending physician, except as noted. Patient was admitted for fever, secondary to UTI, requiring IV antibiotics, complaint of generalized weakness unable to walk, will require physical therapy, patient has labile blood pressure requiring close observation and monitoring, blood pressure drops down into low 110s and then can also increase to systolic 180s, we will give IV hydralazine as needed for SBP more than 180, but prefer to hold off on antihypertensives at this point. Pending urine and blood cultures. Pending SNF placement. Quresh PGY3 Subjective Subjective Interval history: No acute events overnight. Patient seen and examined at bedside this AM. Still feels weak and has dysuria but denies fever, shortness of breath, and chest pain. Patient reports that she lives and home with her son and her daughters come to check on her frequently. Labs and vitals were reviewed. WBC downtrending. Urine and blood culture still pending. Plan for PT evaluation today. Review of systems otherwise negative except what is mentioned above. Exam Vital Signs Temp Pulse Resp BP Pulse Ox O2 Del Method 97.0 F 64 16 144/76 H 98 Room Air 05/10/25 04:00 05/10/25 04:00 05/10/25 04:00 05/10/25 04:00 05/10/25 04:00 05/10/25 04:00 Narrative Exam Physical Exam General: Awake and in no acute distress. Conversational and non-toxic appearing. Frail. HEENT: Normocephalic, atraumatic, mucous membranes moist. Heart: Regular rate and rhythm, normal S1 and S2. Grade 2 out of 6 systolic ejection murmur. Lungs: Clear to auscultation with no wheezing or crackles. Abdomen: Soft, nondistended, nontender, positive bowel sounds. No guarding or rebound tenderness. Neurologic: Alert and oriented x3, no gross neurological deficit, and patient able to move all 4 extremities. Extremities: No edema. Skin: No rash or ecchymoses. Objective Labs 05/13/25 04:42 05/13/25 04:42 Labs: Laboratory Results - last 24 hr 05/09/25 05/09/25 05/09/25 19:06 19:21 19:29 WBC 13.4 H RBC 3.46 L Hgb 11.3 L Hct 32.8 L MCV 95 MCH 32.7 MCHC 34.5 RDW Std Deviation 46.5 H Plt Count 221 Neut % (Auto) 84 H Lymph % (Auto) 8 L [place] % (Auto) 7 Eos % (Auto) 0 Baso % (Auto) 0 Neut # (Auto) 11.2 H Lymph # (Auto) 1.1 [place] # (Auto) 0.9 H Eos # (Auto) 0.0 Baso # (Auto) 0.0 Immature Gran # (Auto) 0.13 H Absolute Nucleated RBC 0.00 Immature Gran % 1 H Nucleated RBC % 0 ESR 86 H Retic Count (auto) Absolute Retic Immature Retic Fraction Retic Hgb Content CHr Sodium 138 Potassium 3.8 Chloride 101 Carbon Dioxide 24.9 Anion Gap 12 BUN 21 Creatinine 1.2 Estim Creat Clear Calc 24.2 L eGFR 45 L BUN/Creatinine Ratio 18 Glucose 124 H Calculated Osmolality 279 Lactic Acid 1.1 Calcium 9.2 Corrected Calcium 9.2 Magnesium 1.9 Iron < 2 L TIBC 227 L Iron Saturation 0 L Unsat Iron Binding 225 Ferritin Total Bilirubin 0.6 Direct Bilirubin 0.2 AST 23 ALT 12 Alkaline Phosphatase 68 Troponin I 0.029 C-Reactive Prot, Quant 29.1 H B-Natriuretic Peptide 200 H Total Protein 6.8 Albumin 4.1 Globulin 2.7 Albumin/Globulin Ratio 1.5 Amylase 55 Lipase 36 Beta-Hydroxybutyrate/Acetoacetate 1.0 H Procalcitonin 2.28 H TSH 0.99 Free T4 1.56 Ur Collection Type Clean Catch Urine Color Lt-Yellow Urine Clarity Turbid A Urine pH 6.0 Ur Specific Williams 1.014 Urine Protein 1+ A Urine Glucose (UA) Negative Urine Ketones 1+ A Urine Blood 2+ A Urine Nitrite Positive Urine Bilirubin Negative Urine Urobilinogen (Auto) Negative Ur Leukocyte Esterase Positive Urine RBC 39 H Urine WBC 142 H Ur Squamous Epith Cells 0 Urine Bacteria None Ur Culture Indicated? Yes 05/10/25 05:55 WBC 12.2 H RBC 3.21 L Hgb 10.6 L Hct 32.0 L MCV 100 MCH 33.0 MCHC 33.1 RDW Std Deviation 48.8 H Plt Count 225 Neut % (Auto) 76 Lymph % (Auto) 16 [place] % (Auto) 7 Eos % (Auto) 0 Baso % (Auto) 0 Neut # (Auto) 9.2 H Lymph # (Auto) 2.0 [place] # (Auto) 0.8 Eos # (Auto) 0.0 Baso # (Auto) 0.0 Immature Gran # (Auto) 0.07 H Absolute Nucleated RBC 0.00 Immature Gran % 1 H Nucleated RBC % 0 ESR Retic Count (auto) 1.3 Absolute Retic 40.8 Immature Retic Fraction 11.6 Retic Hgb Content CHr 30.5 Sodium 142 Potassium 4.2 Chloride 105 Carbon Dioxide 26.0 Anion Gap 11 BUN 19 Creatinine 1.0 Estim Creat Clear Calc 29.9 L eGFR 56 L BUN/Creatinine Ratio 19 Glucose 103 Calculated Osmolality 285 Lactic Acid Calcium 8.5 Corrected Calcium 8.9 Magnesium Iron 10 L TIBC 201 L Iron Saturation 4 L Unsat Iron Binding 191 L Ferritin 135 Total Bilirubin 0.4 Direct Bilirubin AST 19 ALT 13 Alkaline Phosphatase 62 Troponin I C-Reactive Prot, Quant B-Natriuretic Peptide Total Protein 6.0 Albumin 3.5 D Globulin 2.5 Albumin/Globulin Ratio 1.4 Amylase Lipase Beta-Hydroxybutyrate/Acetoacetate Procalcitonin TSH Free T4 Ur Collection Type Urine Color Urine Clarity Urine pH Ur Specific Williams Urine Protein Urine Glucose (UA) Urine Ketones Urine Blood Urine Nitrite Urine Bilirubin Urine Urobilinogen (Auto) Ur Leukocyte Esterase Urine RBC Urine WBC Ur Squamous Epith Cells Urine Bacteria Ur Culture Indicated? Quality Measures Quality Measures none Advance care planning discussed with:: patient Assessment & Plan Assessment Current Active Medications: Generic Name Dose Route Start Last Admin Trade Name Freq PRN Reason Stop Dose Admin Acetaminophen 650 mg 05/09/25 21:16 Acetaminophen 325 Mg Tablet PO 06/08/25 21:15 Q6H PRN Pain 1-3 and/or Fever >100.1 Alprazolam 0.5 mg 05/10/25 21:00 Alprazolam 0.25 Mg Tablet PO 05/15/25 20:59 HS MARY LOU Heparin Sodium (Porcine) 5,000 unit 05/10/25 09:00 Heparin Sod Inj 5000 Unit/Ml Vial SC 05/24/25 08:59 Q12HR MARY LOU Lactated Ringer's 1,000 mls @ 75 mls/hr 05/09/25 21:30 05/09/25 22:05 Lactated Ringers IV 05/10/25 10:49 75 mls/hr .[id number] MARY LOU Administration Ceftriaxone Sodium/Dextrose 1 gm in 50 mls @ 100 mls/hr 05/10/25 21:00 Rocephin/D5w 1gm Iv Premix IV 05/17/25 20:59 QDAY MARY LOU Levothyroxine Sodium 88 mcg 05/10/25 06:00 05/10/25 05:23 Levothyroxine Sodium 88 Mcg Tablet PO 06/09/25 05:59 88 mcg ACBR MARY LOU Administration Ondansetron HCl 4 mg 05/09/25 21:16 Ondansetron Inj 2 Mg/Ml Inj 2 Ml IVP 06/08/25 21:15 Q6H PRN NAUSEA OR VOMITING Protocol Sennosides 1 tab 05/09/25 21:16 Senna Tablet PO 06/08/25 21:15 QDAY PRN constipation Protocol Sertraline HCl 200 mg 05/10/25 21:00 Sertraline Hcl 25 Mg Tablet PO 06/09/25 20:59 HS MARY LOU Plan Patient is a 85-year-old female with past medical history of hypothyroidism, depression/anxiety, hyperlipidemia, left hip replacement presented to the ED on 05/09/25 with fever, weakness and increased urinary frequency , admitted for urinary tract infection. Currently treating with IV ceftriaxone, pending physical therapy consultation. #Urinary tract infection Presented on admission with urinary tract infection symptoms with increased weakness and increased urinary frequency. Associated with mild fever, elevated WBC count, Pro-Jani 2.28. Urinalysis 05/09 showed positive leukocyte esterase, nitrite, pyuria but no bacteria seen. Chest x-ray showed basilar bronchitis pattern. S/p IV ceftriaxone x1, azithromycin, and 1.25 L of NS in ED. WBC improving and patient feels better. Plan: - Continue IV ceftriaxone 1 g daily - Pending urine and blood cultures #Weakness, likely secondary to UTI Patient has been feeling weak since 05/04. At baseline, patient is able to ambulate using a walker but she has been largely bedbound since progression of symptoms. Of note, patient lives at home with son and has daughters that frequently check on her. - PT evaluation pending #Hypertensive urgency #Hypertension, labile Patient states that in the past has been told she is hypotensive which has been the reason she was referred to Dr. Soto. Presented to the ED in hypertensive urgency systolic 207 and diastolic 102, resolved without administration of clonidine. Blood pressure continues to be labile. Plan: - Monitor blood pressure - Consider Hydralazine 10mg if systolic more than 185 after repeat checks - Follow up with asbestos worker helper outpatient for possible anti-hypertensives #Possible aortic stenosis No shortness of breath or cardiac symptoms on admission. On exam, patient does not appear volume overloaded (no lower extremity edema, lungs clear) but there is a grade 2 out of 6 systolic ejection murmur. EKG showed ectopic atrial rhythm with possible left atrial enlargement and incomplete right bundle branch block without any concerning ST changes. BNP mildly elevated at 200. Patient follows up with Dr. Soto outpatient and has recently completed outpatient cardiac stress test. Plan: - Follow-up with Dr. Soto once discharged #Hx of Hypothyroidism Patient on levothyroxine at home. Plan: - Resume home dose levothyroxine #Hx of Depression/anxiety Patient on alprazolam and sertraline per home medication list Plan: - Continue home dose alprazolam and sertraline #Normocytic anemia Differentials include iron deficiency anemia, anemia of chronic disease, iron or vitamin deficiency, less likely to be hemolytic anemia versus myelosuppression. Of note, hemoglobin has been 11-12 for the past year. Iron panel shows low iron, TIBC, iron saturation, likely iron deficiency anemia. Plan: - In light of current infection, will treat outpatient at a later time - Transfuse if hemoglobin less than 7 Health Maintenance: Lines: PIV Diet: Cardiac Bowel: Senna as needed GI prophylaxis: Not needed DVT prophylaxis: Heparin subcu Dispo: IV antibiotics for UTI, PT eval Code: DNR Patient plan of care was discussed with the senior resident, Dr. Roy, and attending physician, Dr. Sandoval. Mary Lopez, PGY-1 Attending Provider Attestation/Addendum 85-year-old female multiple comorbidities including hypothyroidism, hyperlipidemia and depression/anxiety who presented with generalized weakness found to have urinary tract infection and pending blood cultures. Plan to continue Rocephin and awaiting blood cultures.I reviewed above note and agree with findings and plans. I have also personally examined the patient with medicine team and went over assessment and plan with medical team including real estate internship and resident physician.
[2025-05-10] MEDS: HEPARIN SOD INJ 5000 UNIT/ML VIAL SC ×2 (09:01→20:09)
--- NOTE | 2025-05-10 13:52 | PC.PT ---
Patient is safe to ambulate to the bedside commode with a FWW and 1 staff assist. RN made aware.
--- NOTE | 2025-05-10 14:36 | PC.SS ---
Initial assessment: Patient is an 85-year old female admitted for UTI. Patient is alert and oriented. Patient was able to confirm demographic information. Patient resides at home with her son, Rodrigo. Patient emergency contact daughter, Gordy Abraham. Patient informs she utilizes a home walker to assist with ambulation. Patient informs her PCP is Melissa Isaac. [facility] Patient discharge plan is to return home. If recommended for home health, the patient does not have a preference on agency. SNF was discussed and patient is aware she is currently in observation status, not meeting medicare criteria for admission to SNF. Patient informs her family is able to transport her home at discharge. Patient was provided with community resource handout. D/c plan: Home Next of kin: daughterGordy
--- NOTE | 2025-05-10 14:48 | PC.SS ---
Rounding note: PT recommended SNF, patient not meeting for inpatient criteria per [facility] staff. Home health and wheelchair recommended by PT for the patient. Patient is also pending cultures at this time, possible d/c tomorrow.
--- NOTE | 2025-05-10 15:07 | PC.SS ---
Physical therapy has recommended a wheelchair for the patient. WheelChairs Patients diagnosis creates mobility limitations that significantly impairs ability to participate in the patient?s activities of daily living either in their entirety, or in a reasonable time frame in the home and the patient?s mobility limitations can not be sufficiently resolved with an appropriately fitted cane or walker. Also the use of a manual wheelchair will sufficiently improve patient?s ability to participate in the activities of daily living in the home and the patient is willing to use the wheelchair that is provided in the home. The patient has some one in the home that is available, willing and able to provide assistance with the wheelchair.
[2025-05-10] MEDS: ACETAMINOPHEN 325 MG TABLET 650 MG PO (18:24)
[2025-05-10] MEDS: SERTRALINE HCL 25 MG TABLET 200 MG PO (20:08)
[2025-05-10] MEDS: cefTRIAXone/D5w 1gm IV premix 1 GM/50 ML BAG IV (20:09)
[2025-05-11] VITALS (8 sets, daily range): BP systolic 127–162; BP diastolic 62–89; PULSE 57–99; RESP 15–19; TEMP 36.1–37.2; O2SAT 93–98; BMI 18.5
[2025-05-11] MEDS: LEVOTHYROXINE SODIUM 88 MCG TABLET PO (05:18)
[2025-05-11 06:03] LABS: Basophils # (Auto) 0.0 Thou/mm3 (0.0-0.2); Basophils % (Auto) 0 % (0-2.5); Eosinophils # (Auto) 0.1 Thou/mm3 (0.0-0.5); Eosinophils % (Auto) 1 % (0-10); Hematocrit 29.6 % (36.0-46.0); Hemoglobin 9.7 g/dL (12.0-16.0); Immature Granulocytes Auto 0.06 Thou/mm3 (0.00-0.00); Lymphocytes # (Auto) 1.4 Thou/mm3 (1.0-4.8); Lymphocytes % (Auto) 16 % (10-50); Mean Corpuscular HGB Conc 32.8 g/dl (31.0-37.0); Mean Corpuscular Hemoglobin 32.4 pg (25.0-35.0); Mean Corpuscular Volume 99 fL (80-100); Monocytes # (Auto) 0.8 Thou/mm3 (0.0-0.8); Monocytes % (Auto) 8 % (0-12); Neutrophils # (Auto) 6.9 Thou/mm3 (1.8-7.7); Neutrophils % (Auto) 75 % (37-80); Nucleated Red Blood Cell # 0.00 Thou/mm3 (0.00-0.00); Nucleated Red Blood Cell % 0 /100 WBC (0); Platelet Count 258 Thou/mm3 (140-440); RDW Standard Deviation 47.4 fL (36.4-46.3); Red Blood Count 2.99 Miln/mm3 (4.00-5.20); White Blood Count 9.3 Thou/mm3 (3.6-11.0)
[2025-05-11 06:34] LABS: Alanine Aminotransferase 19 U/L (10-49); Albumin, Serum 3.5 gm/dL (3.4-4.8); Albumin/Globulin Ratio 1.5 (1.2-2.2); Alkaline Phosphatase 59 U/L (46-116); Anion Gap 8 (7-16); Aspartate Amino Transferase 27 U/L (0-34); BUN/Creatinine Ratio 15 Ratio (12-20); Bilirubin,Total 0.3 mg/dL (0.3-1.2); Blood Urea Nitrogen 15 mg/dL (9-23); Calcium 8.4 mg/dL (8.3-10.6); Calcium (Corrected) 8.8 mg/dL (8.5-10.1); Carbon Dioxide 27.3 mMol/L (20.0-31.0); Chloride 106 mMol/L (98-107); Creatinine (Component) 1.0 mg/dL (0.6-1.3); Estimated Creatinine Clearance 29.9 mL/min (>60); Globulin 2.4 gm/dL (2.3-3.5); Glucose 103 mg/dL (74-106); Osmolality,Calculated 282 (275-295); Potassium 4.0 mMol/L (3.4-5.1); Sodium 141 mMol/L (136-145); Total Protein 5.9 gm/dL (5.7-8.2); eGFR 56 See Note
[2025-05-11] MEDS: HEPARIN SOD INJ 5000 UNIT/ML VIAL SC ×2 (08:57→20:37)
--- NOTE | 2025-05-11 10:23 | PD.RESPRO ---
Documentation for date of: 05/11/25 Senior resident attestation: Patient evaluated and examined at the bedside, plan of care discussed with rest of the team including my attending physician, except as noted. Patient was admitted for fever, secondary to UTI, requiring IV antibiotics, complaint of generalized weakness unable to walk, will require physical therapy, patient has labile blood pressure requiring close observation and monitoring, blood pressure drops down into low 110s and then can also increase to systolic 180s, we will give IV hydralazine as needed for SBP more than 180, but prefer to hold off on antihypertensives at this point. Pending SNF placement, requires 3 midnight stay. #GNR bacteremia?started on IV ceftriaxone, as likely same bacteria as isolated on urine culture, pansensitive, pending final cultures, will escalate antibiotics if needed following microbiology results. Currently patient stays afebrile and asymptomatic. #E. coli UTI, pansensitive on urine culture. #Labile hypertension Quresh PGY3 Subjective Subjective Interval history: No acute events overnight. Patient seen and examined at bedside this AM. No complaints this morning. Reported yellow, bilious like stool yesterday. However on exam abdomen was nontender. Urinary frequency has improved. Denied chest pain, shortness of breath, dysuria. Labs and vitals were reviewed. Patient was hypertensive this morning with pressure at 150/73, systolic was 162 overnight. Note that blood pressure is labile however, will start amlodipine 5 mg daily with instructions to hold if systolic is less than 120. White blood cell count continues to downtrend. Hemoglobin is 9.7 today, prior iron panel likely iron deficiency anemia. No signs of acute bleed, can workup outpatient. Preliminary blood culture is positive for gram-negative bacteremia, pending official read and sensitivities. Continues to work with PT, they recommend that patient be discharged to SNF. Review of systems otherwise negative except what is mentioned above. Exam Vital Signs Temp Pulse Resp BP Pulse Ox O2 Del Method 98.4 F 68 16 150/73 H 94 L Room Air 05/11/25 07:54 05/11/25 08:57 05/11/25 07:54 05/11/25 08:57 05/11/25 07:54 05/11/25 04:00 Narrative Exam Physical Exam General: Awake and in no acute distress. Conversational and non-toxic appearing. Very frail. HEENT: Normocephalic, atraumatic, mucous membranes moist. Heart: Regular rate and rhythm, normal S1 and S2. Grade 2 out of 6 systolic ejection murmur. Lungs: Clear to auscultation with no wheezing or crackles. Abdomen: Soft, nondistended, nontender, positive bowel sounds. No guarding or rebound tenderness. Neurologic: Alert and oriented x3, no gross neurological deficit, and patient able to move all 4 extremities. Extremities: No edema. Skin: No rash or ecchymoses. Objective Labs 05/13/25 04:42 05/13/25 04:42 Labs: Laboratory Results - last 24 hr 05/11/25 05:45 WBC 9.3 RBC 2.99 L Hgb 9.7 L Hct 29.6 L MCV 99 MCH 32.4 MCHC 32.8 RDW Std Deviation 47.4 H Plt Count 258 D Neut % (Auto) 75 Lymph % (Auto) 16 [place] % (Auto) 8 Eos % (Auto) 1 Baso % (Auto) 0 Neut # (Auto) 6.9 Lymph # (Auto) 1.4 [place] # (Auto) 0.8 Eos # (Auto) 0.1 Baso # (Auto) 0.0 Immature Gran # (Auto) 0.06 H Absolute Nucleated RBC 0.00 Immature Gran % 1 H Nucleated RBC % 0 Sodium 141 Potassium 4.0 Chloride 106 Carbon Dioxide 27.3 Anion Gap 8 BUN 15 Creatinine 1.0 Estim Creat Clear Calc 29.9 L eGFR 56 L BUN/Creatinine Ratio 15 Glucose 103 Calculated Osmolality 282 Calcium 8.4 Corrected Calcium 8.8 Total Bilirubin 0.3 AST 27 ALT 19 Alkaline Phosphatase 59 Total Protein 5.9 Albumin 3.5 Globulin 2.4 Albumin/Globulin Ratio 1.5 Quality Measures Quality Measures none Advance care planning discussed with:: patient Assessment & Plan Assessment Current Active Medications: Generic Name Dose Route Start Last Admin Trade Name Freq PRN Reason Stop Dose Admin Acetaminophen 650 mg 05/09/25 21:16 05/10/25 18:24 Acetaminophen 325 Mg Tablet PO 06/08/25 21:15 650 mg Q6H PRN Administration Pain 1-3 and/or Fever >100.1 Alprazolam 0.5 mg 05/10/25 21:00 05/10/25 20:09 Alprazolam 0.25 Mg Tablet PO 05/15/25 20:59 0.5 mg HS MARY LOU Administration Amlodipine Besylate 5 mg 05/11/25 09:00 05/11/25 08:57 Amlodipine Besylate 5 Mg Tablet PO 06/10/25 08:59 5 mg QDAY MARY LOU Administration Heparin Sodium (Porcine) 5,000 unit 05/10/25 09:00 05/11/25 08:57 Heparin Sod Inj 5000 Unit/Ml Vial SC 05/24/25 08:59 5,000 unit Q12HR MARY LOU Administration Ceftriaxone Sodium/Dextrose 1 gm in 50 mls @ 100 mls/hr 05/10/25 21:00 05/10/25 20:09 Rocephin/D5w 1gm Iv Premix IV 05/17/25 20:59 100 mls/hr QDAY MARY LOU Administration Levothyroxine Sodium 88 mcg 05/10/25 06:00 05/11/25 05:18 Levothyroxine Sodium 88 Mcg Tablet PO 06/09/25 05:59 88 mcg ACBR MARY LOU Administration Ondansetron HCl 4 mg 05/09/25 21:16 Ondansetron Inj 2 Mg/Ml Inj 2 Ml IVP 06/08/25 21:15 Q6H PRN NAUSEA OR VOMITING Protocol Sennosides 1 tab 05/09/25 21:16 Senna Tablet PO 06/08/25 21:15 QDAY PRN constipation Protocol Sertraline HCl 200 mg 05/10/25 21:00 05/10/25 20:08 Sertraline Hcl 25 Mg Tablet PO 06/09/25 20:59 200 mg HS MARY LOU Administration Plan Patient is a 85-year-old female with past medical history of hypothyroidism, depression/anxiety, hyperlipidemia, left hip replacement presented to the ED on 05/09/25 with fever, weakness and increased urinary frequency , admitted for gram-negative bacteremia secondary to urinary tract infection, currently on IV ceftriaxone, and failure to thrive. #Urinary tract infection #GNR bacteremia, secondary to above Presented on admission with urinary tract infection symptoms with increased weakness and increased urinary frequency. Associated with mild fever, elevated WBC count, Pro-Jani 2.28. Urinalysis 05/09 showed positive leukocyte esterase, nitrite, pyuria but no bacteria seen. Chest x-ray showed basilar bronchitis pattern. S/p IV ceftriaxone x1, azithromycin, and 1.25 L of NS in ED. WBC improving and patient feels better. 05/11: Urine cultures positive for gram-negative almaz. Preliminary blood culture is positive for gram-negative bacteria. White blood cell count continues to downtrend, likely indicating that bacteria is sensitive to current antibiotic treatment. Patient also continues to symptomatically improved. Plan: - Continue IV ceftriaxone 1 g daily for 10?14 day course (05/10? - Pending final blood culture and sensitivities # Generalized weakness, likely secondary to UTI #Failure to thrive #BMI 17.9 Patient has been feeling weak since 05/04. At baseline, patient is able to ambulate using a walker but she has been largely bedbound since progression of symptoms. Of note, patient lives at home with son and has daughters that frequently check on her. - Per PT evaluation, patient requires rehab at SNF - Started on cardiac diet with Ensure plus high-protein #Hypertensive urgency?resolved #Hypertension, labile Patient states that in the past has been told she is hypotensive which has been the reason she was referred to Dr. Soto. Presented to the ED in hypertensive urgency systolic 207 and diastolic 102, resolved without administration of clonidine. Blood pressure continues to be labile. Plan: - Monitor blood pressure -Started on amlodipine 5 mg daily, with instruction to hold if systolic is less than 120 - Follow up with telegraph messenger outpatient for starting anti-hypertensives #Possible aortic stenosis No shortness of breath or cardiac symptoms on admission. On exam, patient does not appear volume overloaded (no lower extremity edema, lungs clear) but there is a grade 2 out of 6 systolic ejection murmur. EKG showed ectopic atrial rhythm with possible left atrial enlargement and incomplete right bundle branch block without any concerning ST changes. BNP mildly elevated at 200. Patient follows up with Dr. Soto outpatient and has recently completed outpatient cardiac stress test. Plan: - Follow-up with Dr. Soto once discharged #Hx of Hypothyroidism Patient on levothyroxine at home. Plan: - Resume home dose levothyroxine #Hx of Depression/anxiety Patient on alprazolam and sertraline per home medication list Plan: - Continue home dose alprazolam and sertraline #Normocytic anemia Differentials include iron deficiency anemia, anemia of chronic disease, iron or vitamin deficiency, less likely to be hemolytic anemia versus myelosuppression. Of note, hemoglobin has been 11-12 for the past year. Iron panel shows low iron, TIBC, iron saturation, likely iron deficiency anemia. Plan: - In light of current infection, will treat outpatient at a later time - Transfuse if hemoglobin less than 7 Health Maintenance: Lines: PIV Diet: Cardiac Bowel: Senna as needed GI prophylaxis: Not needed DVT prophylaxis: Heparin subcu Dispo: IV antibiotics for UTI, PT eval Code: DNR Patient plan of care was discussed with the senior resident, Dr. Roy, and attending physician, Dr. Sandoval. Mary Lopez, PGY-1 Attending Provider Attestation/Addendum 85-year-old female multiple comorbidities including hypothyroidism, hyperlipidemia and depression/anxiety who presented with generalized weakness found to have urinary tract infection and pending blood cultures. Blood cultures came back 1 out of 2 positive for gram-negative almaz concerning for E. coli bacteremia.. I have also personally examined the patient with medicine team and went over assessment and plan with medical team including procurement internship and resident physician.
--- NOTE | 2025-05-11 14:24 | PC.SS ---
SS has initiated PASRR assessment and pt is LVL 2 and will require state clearnace for d/c.
[2025-05-11] MEDS: cefTRIAXone/D5w 1gm IV premix 1 GM/50 ML BAG IV (20:35)
[2025-05-11] MEDS: SERTRALINE HCL 25 MG TABLET 200 MG PO (20:36)
[2025-05-12] VITALS (7 sets, daily range): BP systolic 135–161; BP diastolic 70–76; PULSE 67–83; RESP 14–18; TEMP 36.2–36.6; O2SAT 94–97; BMI 13.0
[2025-05-12] MEDS: LEVOTHYROXINE SODIUM 88 MCG TABLET PO (06:13)
[2025-05-12 06:32] LABS: Basophils # (Auto) 0.0 Thou/mm3 (0.0-0.2); Basophils % (Auto) 1 % (0-2.5); Eosinophils # (Auto) 0.1 Thou/mm3 (0.0-0.5); Eosinophils % (Auto) 2 % (0-10); Hematocrit 29.3 % (36.0-46.0); Hemoglobin 10.0 g/dL (12.0-16.0); Immature Granulocytes Auto 0.09 Thou/mm3 (0.00-0.00); Lymphocytes # (Auto) 2.1 Thou/mm3 (1.0-4.8); Lymphocytes % (Auto) 27 % (10-50); Mean Corpuscular HGB Conc 34.1 g/dl (31.0-37.0); Mean Corpuscular Hemoglobin 33.4 pg (25.0-35.0); Mean Corpuscular Volume 98 fL (80-100); Monocytes # (Auto) 0.8 Thou/mm3 (0.0-0.8); Monocytes % (Auto) 10 % (0-12); Neutrophils # (Auto) 4.8 Thou/mm3 (1.8-7.7); Neutrophils % (Auto) 61 % (37-80); Nucleated Red Blood Cell # 0.00 Thou/mm3 (0.00-0.00); Nucleated Red Blood Cell % 0 /100 WBC (0); Platelet Count 276 Thou/mm3 (140-440); RDW Standard Deviation 47.0 fL (36.4-46.3); Red Blood Count 2.99 Miln/mm3 (4.00-5.20); White Blood Count 7.9 Thou/mm3 (3.6-11.0)
[2025-05-12 07:14] LABS: Alanine Aminotransferase 21 U/L (10-49); Albumin, Serum 3.5 gm/dL (3.4-4.8); Albumin/Globulin Ratio 1.4 (1.2-2.2); Alkaline Phosphatase 56 U/L (46-116); Anion Gap 10 (7-16); Aspartate Amino Transferase 24 U/L (0-34); BUN/Creatinine Ratio 12 Ratio (12-20); Bilirubin,Total 0.2 mg/dL (0.3-1.2); Blood Urea Nitrogen 12 mg/dL (9-23); Calcium 8.8 mg/dL (8.3-10.6); Calcium (Corrected) 9.2 mg/dL (8.5-10.1); Carbon Dioxide 27.2 mMol/L (20.0-31.0); Chloride 105 mMol/L (98-107); Creatinine (Component) 1.0 mg/dL (0.6-1.3); Estimated Creatinine Clearance 29.9 mL/min (>60); Globulin 2.5 gm/dL (2.3-3.5); Glucose 93 mg/dL (74-106); Magnesium 1.5 mg/dL (1.6-2.6); Osmolality,Calculated 282 (275-295); Phosphorous 3.0 mg/dL (2.4-5.1); Potassium 3.9 mMol/L (3.4-5.1); Sodium 142 mMol/L (136-145); Total Protein 6.0 gm/dL (5.7-8.2); eGFR 56 See Note
[2025-05-12] MEDS: cefTRIAXone/D5w 2gm 2 GM/50 ML BAG IV (08:37)
[2025-05-12] MEDS: HEPARIN SOD INJ 5000 UNIT/ML VIAL SC ×2 (08:38→20:22)
[2025-05-12] MEDS: MAGNESIUM OXIDE 400 MG TABLET PO (09:35)
[2025-05-12] MEDS: Magnesium Sulfate 2 GM Ivpb 2 GM/50 ML BAG IV (09:35)
--- NOTE | 2025-05-12 11:10 | PC.SS ---
Follow up note: Pt has bacteremia in blood. Pt is on IV antibiotic. Pt is d/c to SNF.
--- NOTE | 2025-05-12 11:59 | PD.RESPRO ---
Documentation for date of: 05/12/25 Subjective Subjective Interval history: No acute events overnight. Patient complained of soft stools, likely secondary to antibiotic treatment. Labs and vitals were reviewed. Patient's blood pressure continues to be labile, 140/76 this morning. WBC continue to downtrend, 7.9. Hemoglobin stable at 10. Magnesium 1.5, repleted. Anticipate discharge to SNF tomorrow. Review of systems otherwise negative except what is mentioned above. Exam Vital Signs Temp Pulse Resp BP Pulse Ox O2 Del Method 97.4 F 67 14 161/72 H 96 Room Air 05/12/25 08:00 05/12/25 08:37 05/12/25 08:00 05/12/25 08:37 05/12/25 08:00 05/12/25 08:00 Narrative Exam Physical Exam General: Awake and in no acute distress. Conversational and non-toxic appearing. Very frail. HEENT: Normocephalic, atraumatic, mucous membranes moist. Heart: Regular rate and rhythm, normal S1 and S2. Grade 2 out of 6 systolic ejection murmur. Lungs: Clear to auscultation with no wheezing or crackles. Abdomen: Soft, nondistended, nontender, positive bowel sounds. No guarding or rebound tenderness. Neurologic: Alert and oriented x3, no gross neurological deficit, and patient able to move all 4 extremities. Extremities: No edema. Skin: No rash or ecchymoses. Objective Labs 05/13/25 04:42 05/13/25 04:42 Labs: Laboratory Results - last 24 hr 05/12/25 05:42 WBC 7.9 RBC 2.99 L Hgb 10.0 L Hct 29.3 L MCV 98 MCH 33.4 MCHC 34.1 RDW Std Deviation 47.0 H Plt Count 276 Neut % (Auto) 61 Lymph % (Auto) 27 [place] % (Auto) 10 Eos % (Auto) 2 Baso % (Auto) 1 Neut # (Auto) 4.8 Lymph # (Auto) 2.1 [place] # (Auto) 0.8 Eos # (Auto) 0.1 Baso # (Auto) 0.0 Immature Gran # (Auto) 0.09 H Absolute Nucleated RBC 0.00 Immature Gran % 1 H Nucleated RBC % 0 Sodium 142 Potassium 3.9 Chloride 105 Carbon Dioxide 27.2 Anion Gap 10 BUN 12 Creatinine 1.0 Estim Creat Clear Calc 29.9 L eGFR 56 L BUN/Creatinine Ratio 12 Glucose 93 Calculated Osmolality 282 Calcium 8.8 Corrected Calcium 9.2 Phosphorus 3.0 Magnesium 1.5 L Total Bilirubin 0.2 L AST 24 ALT 21 Alkaline Phosphatase 56 Total Protein 6.0 Albumin 3.5 Globulin 2.5 Albumin/Globulin Ratio 1.4 Quality Measures Quality Measures none Advance care planning discussed with:: patient Assessment & Plan Assessment Current Active Medications: Generic Name Dose Route Start Last Admin Trade Name Freq PRN Reason Stop Dose Admin Acetaminophen 650 mg 05/09/25 21:16 05/10/25 18:24 Acetaminophen 325 Mg Tablet PO 06/08/25 21:15 650 mg Q6H PRN Administration Pain 1-3 and/or Fever >100.1 Alprazolam 0.5 mg 05/10/25 21:00 05/11/25 20:36 Alprazolam 0.25 Mg Tablet PO 05/15/25 20:59 0.5 mg HS MARY LOU Administration Amlodipine Besylate 5 mg 05/11/25 09:00 05/12/25 08:37 Amlodipine Besylate 5 Mg Tablet PO 06/10/25 08:59 5 mg QDAY MARY LOU Administration Heparin Sodium (Porcine) 5,000 unit 05/10/25 09:00 05/12/25 08:38 Heparin Sod Inj 5000 Unit/Ml Vial SC 05/24/25 08:59 5,000 unit Q12HR MARY LOU Administration Ceftriaxone Sodium/Dextrose 2 gm in 50 mls @ 100 mls/hr 05/12/25 09:00 05/12/25 08:37 Rocephin/D5w 2gm IV 05/19/25 08:59 100 mls/hr QDAY MARY LOU Administration Levothyroxine Sodium 88 mcg 05/10/25 06:00 05/12/25 06:13 Levothyroxine Sodium 88 Mcg Tablet PO 06/09/25 05:59 88 mcg ACBR MARY LOU Administration Ondansetron HCl 4 mg 05/09/25 21:16 Ondansetron Inj 2 Mg/Ml Inj 2 Ml IVP 06/08/25 21:15 Q6H PRN NAUSEA OR VOMITING Protocol Sennosides 1 tab 05/09/25 21:16 Senna Tablet PO 06/08/25 21:15 QDAY PRN constipation Protocol Sertraline HCl 200 mg 05/10/25 21:00 05/11/25 20:36 Sertraline Hcl 25 Mg Tablet PO 06/09/25 20:59 200 mg HS MARY LOU Administration Plan Patient is a 85-year-old female with past medical history of hypothyroidism, depression/anxiety, hyperlipidemia, left hip replacement presented to the ED on 05/09/25 with fever, weakness and increased urinary frequency , admitted for gram-negative bacteremia secondary to urinary tract infection, currently on IV ceftriaxone, and failure to thrive. Anticipate discharge to SNF tomorrow. #Urinary tract infection #GNR bacteremia, secondary to above Presented on admission with urinary tract infection symptoms with increased weakness and increased urinary frequency. Associated with mild fever, elevated WBC count, Pro-Jani 2.28. Urinalysis 05/09 showed positive leukocyte esterase, nitrite, pyuria but no bacteria seen. Chest x-ray showed basilar bronchitis pattern. S/p IV ceftriaxone x1, azithromycin, and 1.25 L of NS in ED. WBC improving and patient feels better. 05/11: Urine cultures positive for gram-negative almaz. Preliminary blood culture is positive for gram-negative bacteria. White blood cell count continues to downtrend, likely indicating that bacteria is sensitive to current antibiotic treatment. Patient also continues to symptomatically improved. Plan: - Continue IV ceftriaxone 1 g daily for 10?14 day course (05/10? ? Consider continuing IV medication or transition to oral antibiotics after discharge # Generalized weakness, likely secondary to UTI #Failure to thrive #BMI 17.9 Patient has been feeling weak since 05/04. At baseline, patient is able to ambulate using a walker but she has been largely bedbound since progression of symptoms. Of note, patient lives at home with son and has daughters that frequently check on her. - Per PT evaluation, patient requires rehab at SNF - Continue on cardiac diet with Ensure plus high-protein #Hypertensive urgency?resolved #Hypertension, labile Patient states that in the past has been told she is hypotensive which has been the reason she was referred to Dr. Soto. Presented to the ED in hypertensive urgency systolic 207 and diastolic 102, resolved without administration of clonidine. Blood pressure continues to be labile. Plan: - Monitor blood pressure -Started on amlodipine 5 mg daily, with instruction to hold if systolic is less than 120 - Follow up with communications media professor outpatient for starting anti-hypertensives #Possible aortic stenosis No shortness of breath or cardiac symptoms on admission. On exam, patient does not appear volume overloaded (no lower extremity edema, lungs clear) but there is a grade 2 out of 6 systolic ejection murmur. EKG showed ectopic atrial rhythm with possible left atrial enlargement and incomplete right bundle branch block without any concerning ST changes. BNP mildly elevated at 200. Patient follows up with Dr. Soto outpatient and has recently completed outpatient cardiac stress test. Plan: - Follow-up with Dr. Soto once discharged #Hx of Hypothyroidism Patient on levothyroxine at home. Plan: - Resume home dose levothyroxine #Hx of Depression/anxiety Patient on alprazolam and sertraline per home medication list Plan: - Continue home dose alprazolam and sertraline #Normocytic anemia Differentials include iron deficiency anemia, anemia of chronic disease, iron or vitamin deficiency, less likely to be hemolytic anemia versus myelosuppression. Of note, hemoglobin has been 11-12 for the past year. Iron panel shows low iron, TIBC, iron saturation, likely iron deficiency anemia. Plan: - In light of current infection, will treat outpatient at a later time - Transfuse if hemoglobin less than 7 Health Maintenance: Lines: PIV Diet: Cardiac Bowel: Senna as needed GI prophylaxis: Not needed DVT prophylaxis: Heparin subcu Dispo: IV antibiotics for UTI, PT eval Code: DNR Patient plan of care was discussed with the senior resident, Dr. Roy, and attending physician, Dr. Sandoval. Mary Lopez, PGY-1 Attending Provider Attestation/Addendum 85-year-old female multiple comorbidities including hypothyroidism, hyperlipidemia and depression/anxiety who presented with generalized weakness found to have urinary tract infection and pending blood cultures. Blood cultures came back 1 out of 2 positive for gram-negative almaz concerning for E. coli bacteremia however awaiting ID and sensitivity. Plan to discharge the patient tomorrow. I have also personally examined the patient with medicine team and went over assessment and plan with medical team including internal communications intern and resident physician.
--- NOTE | 2025-05-12 14:05 | PC.PT ---
Patient is now safe to ambulate to the bathroom with a FWW and 1 staff assist. RN made aware.
[2025-05-12] MEDS: SERTRALINE HCL 25 MG TABLET 200 MG PO (20:19)
[2025-05-13] VITALS (8 sets, daily range): BP systolic 111–161; BP diastolic 60–81; PULSE 72–88; RESP 15–20; TEMP 36.3–37.2; O2SAT 94–97
[2025-05-13] MEDS: LEVOTHYROXINE SODIUM 88 MCG TABLET PO (05:25)
[2025-05-13 06:12] LABS: Basophils # (Auto) 0.0 Thou/mm3 (0.0-0.2); Basophils % (Auto) 0 % (0-2.5); Eosinophils # (Auto) 0.1 Thou/mm3 (0.0-0.5); Eosinophils % (Auto) 1 % (0-10); Hematocrit 30.0 % (36.0-46.0); Hemoglobin 10.1 g/dL (12.0-16.0); Immature Granulocytes Auto 0.17 Thou/mm3 (0.00-0.00); Lymphocytes # (Auto) 2.0 Thou/mm3 (1.0-4.8); Lymphocytes % (Auto) 22 % (10-50); Mean Corpuscular HGB Conc 33.7 g/dl (31.0-37.0); Mean Corpuscular Hemoglobin 32.4 pg (25.0-35.0); Mean Corpuscular Volume 96 fL (80-100); Monocytes # (Auto) 0.6 Thou/mm3 (0.0-0.8); Monocytes % (Auto) 7 % (0-12); Neutrophils # (Auto) 6.1 Thou/mm3 (1.8-7.7); Neutrophils % (Auto) 67 % (37-80); Nucleated Red Blood Cell # 0.00 Thou/mm3 (0.00-0.00); Nucleated Red Blood Cell % 0 /100 WBC (0); Platelet Count 320 Thou/mm3 (140-440); RDW Standard Deviation 46.2 fL (36.4-46.3); Red Blood Count 3.12 Miln/mm3 (4.00-5.20); White Blood Count 9.0 Thou/mm3 (3.6-11.0)
[2025-05-13 06:33] LABS: Alanine Aminotransferase 19 U/L (10-49); Albumin, Serum 3.6 gm/dL (3.4-4.8); Albumin/Globulin Ratio 1.4 (1.2-2.2); Alkaline Phosphatase 58 U/L (46-116); Anion Gap 10 (7-16); Aspartate Amino Transferase 18 U/L (0-34); BUN/Creatinine Ratio 16 Ratio (12-20); Bilirubin,Total 0.2 mg/dL (0.3-1.2); Blood Urea Nitrogen 14 mg/dL (9-23); Calcium 8.7 mg/dL (8.3-10.6); Calcium (Corrected) 9.0 mg/dL (8.5-10.1); Carbon Dioxide 26.1 mMol/L (20.0-31.0); Chloride 104 mMol/L (98-107); Creatinine (Component) 0.9 mg/dL (0.6-1.3); Estimated Creatinine Clearance 32.0 mL/min (>60); Globulin 2.6 gm/dL (2.3-3.5); Glucose 95 mg/dL (74-106); Magnesium 2.1 mg/dL (1.6-2.6); Osmolality,Calculated 279 (275-295); Phosphorous 3.4 mg/dL (2.4-5.1); Potassium 3.7 mMol/L (3.4-5.1); Sodium 140 mMol/L (136-145); Total Protein 6.2 gm/dL (5.7-8.2); eGFR > 60 See Note
--- NOTE | 2025-05-13 07:16 | ESDS_ITS ---
<Statement entered by Adrian Sandoval MD - 05/22/25 14:16> I reviewed above note and agree with findings and plans. I have also personally examined the patient with medicine team and went over assessment and plan with medical team including news intern and resident physician. Planned Discharge Date 05/13/25 DS: Providers Provider Date of admission: 05/10/25 15:38 Primary care physician: Efrain Pride MD Admitting Provider: Imer Johnson DO Attending Provider on Admission: Adrian Sandoval MD Consults: 05/09/25 22:59 Referral Physical Therapy Routine Comment: Physician Instructions: 05/10/25 09:00 Referral Physical Therapy Routine Comment: Physician Instructions: Attending Provider on DC: RESIDENT Rafael Discharging Provider: RESIDENT Rafael DS: Diagnosis Problem List Completed Was Problem List Reviewed/Reconciled?: Yes Hospital Course Hospital Course Hospital course: Summary: Patient is a 85-year-old female with past medical history of hypothyroidism, depression/anxiety, hyperlipidemia, left hip replacement presented to the ED on 05/09/25 with fever, weakness and increased urinary freq uency , admitted for gram-negative bacteremia secondary to urinary tract infection, currently on IV ceftriaxone, and failure to thrive. Discharge to SNF. ED Course: In the ED, patient initially presented hypertensive 207/102, regular heart rate, respiratory rate 17, mildly febrile 99.7 ?F, saturating 93 on room air. Pertinent lab findings included WBC of 13.4, hemoglobin 11.3 with MCV of 95, BUN 21, creatinine 1.2, glucose 124, lactic acid 1.1, troponin 0.02, BNP 200, Pro-Jani 2.28, TSH 0.99 and free T41.56. Urinalysis showed positive leukocyte esterase, nitrite, pyuria but no bacteria seen. Chest x-ray showed basilar bronchitis pattern EKG showed ectopic atrial rhythm with possible left atrial enlargement and incomplete right bundle branch block without any con cerning ST changes. Reason for hospitalization: Patient is an 85-year-old female that presented with fever, generalized weakness, and increased urinary frequency. Found to have E. coli UTI, blood culture later showed that patient had gram-negative bacteremia, likely also E. coli. Patient was treated with IV ceftriaxone since admission on 05/09. She will need to continue cefuroxime 500 mg twice daily for another 6 to 10 days after discharge. Patient presented with BMI of 17.9, PT was consulted and recommended discharge to SNF for rehabilitation. Patient's blood pressure was hypertensive and labile throughout stay. Started on amlodipine 5 mg daily, may consider starting secondary hypertensive medication outpatient. Patient follows up with Dr. Soto for possible aortic stenosis, consider cardiac stress test at a later time. Resume all other home medications. Of note patient had normocytic anemia, based on iron panel likely iron deficiency anemia. Will defer treatment at a later time given current bacteremia. Discharge Recommendations: Please continue antibiotics for 10 more days for your urinary tract infection and blood stream infection Please take anti-hypertensive medication, Amlodipine 5 mg once daily. Please skip dose if systolic blood Pressure less than 120 continue all other medication as prescribed -Please follow up with your primary care provider within one week of discharge -If your symptoms worsen,please seek immediate medical attention and return to your nearest emergency room -If you do not have a primary care provider, you [facility] [address], [place] [address], Hospital Diagnoses: #Urinary tract infection #GNR bacteremia, secondary to above # Generalized weakness, likely secondary to UTI #Failure to thrive #BMI 17.9 #Hypertensive urgency?resolved #Hypertension, labile #Possible aortic stenosis #Hx of Hypothyroidism #Hx of Depression/anxiety #Normocytic anemia Disposition: Safe discharge to SNF. Time Spent with Patient Time attestation: Total time spent providing and/or coordinating discharge services: At least 30 minutes of care coordination Time spent: Greater than 30 minutes Exam Vital Signs Temp Pulse Resp BP Pulse Ox O2 Del Method 98.7 F 77 15 161/75 H 94 L Room Air 05/13/25 04:00 05/13/25 04:00 05/13/25 04:00 05/13/25 04:00 05/13/25 04:00 05/13/25 04:00 Narrative Exam Physical Exam General: Awake and in no acute distress. Conversational and non-toxic appearing. Very frail. HEENT: Normocephalic, atraumatic, mucous membranes moist. Heart: Regular rate and rhythm, normal S1 and S2. Grade 2 out of 6 systolic ejection murmur. Lungs: Clear to auscultation with no wheezing or crackles. Abdomen: Soft, nondistended, nontender, positive bowel sounds. No guarding or rebound tenderness. Neurologic: Alert and oriented x3, no gross neurological deficit, and patient able to move all 4 extremities. Extremities: No edema. Skin: No rash or ecchymoses. Discharge Plan Plan Patient Disposition: Xfer Skilled Nsg Fac (SNF) Care Plan Goals: Instructions: Please continue antibiotics for 10 more days for your urinary tract infection and blood stream infection Please take anti-hypertensive medication, Amlodipine 5 mg once daily. Please skip dose if systolic Blood Pressure less than 120 continue all other medication as prescribed -Please follow up with your primary care provider within one week of discharge -If your symptoms worsen,please seek immediate medical attention and return to your nearest emergency room -If you do not have a primary care provider, you may follow up at the [facility] at [address] [place] [address] [address], [place] [address], Prescriptions/Referrals Prescriptions/Med Rec: New amlodipine 5 mg Tablet 5 mg PO QDAY 30 Days Qty: 30 0RF Rx Instructions: Please skip dose if systolic blood pressure less than 120 cefuroxime axetil 500 mg tablet 500 mg PO BID 10 Days Qty: 20 0RF Continued multivitamin [Multiple Vitamins] Tablet 1 tab PO QDAY levothyroxine 88 mcg Tablet 88 mcg PO QDAY sertraline 100 mg Tablet 200 mg PO QDAY calcium carbonate-vitamin D3 [Calcium 600 + D(3)] 600 mg(1,500mg) -200 unit Tablet 1 tab PO QDAY simvastatin 20 mg tablet 20 mg PO QAM alprazolam 0.5 mg tablet 0.25 mg PO DAILY Referrals: Efrain Pride MD [Primary Care Provider] - Patient/Caregiver Discharge Instructions Print Language: Congolese Stand Alone Forms: Kiki Award Info., Patient Portal Info Letter Discharge Order Discharge Orders: Discharge (Routine); Ordered 05/13/25 Ordered By: Mya Vicente Quality Discharge Quality Measures VTE prophylaxis
[2025-05-13] MEDS: cefTRIAXone/D5w 2gm 2 GM/50 ML BAG IV (08:57)
[2025-05-13] MEDS: HEPARIN SOD INJ 5000 UNIT/ML VIAL SC ×2 (08:57→20:44)
--- NOTE | 2025-05-13 10:44 | PC.SS ---
SNF referrals submitted via [facility] to [facility], [facility], [facility], [facility], [facility], and [facility] SNFs, responses from local SNFs pending. Computational Sciences Professor met with patient at bedside to confirm discharge plan. Patient confirmed she would like to discharge to SNF, [facility] is her preferred choice. [facility] cleared and closed.
[2025-05-13] MEDS: ACETAMINOPHEN 325 MG TABLET 650 MG PO ×2 (11:36→19:54)
[2025-05-13] MEDS: SERTRALINE HCL 25 MG TABLET 200 MG PO (20:47)
[2025-05-14] VITALS (12 sets, daily range): BP systolic 112–185; BP diastolic 56–85; PULSE 63–78; RESP 16–21; TEMP 36.2–37.1; O2SAT 94–97
[2025-05-14] MEDS: LEVOTHYROXINE SODIUM 88 MCG TABLET PO (05:41)
[2025-05-14 07:05] LABS: Magnesium 1.8 mg/dL (1.6-2.6); Phosphorous 4.4 mg/dL (2.4-5.1)
[2025-05-14] MEDS: HEPARIN SOD INJ 5000 UNIT/ML VIAL SC ×2 (08:02→20:09)
[2025-05-14] MEDS: cefTRIAXone/D5w 2gm 2 GM/50 ML BAG IV (08:02)
[2025-05-14] MEDS: LIDOCAINE 5% 1 PATCH TOP (13:49)
[2025-05-14] MEDS: ACETAMINOPHEN 325 MG TABLET 650 MG PO (13:57)
--- NOTE | 2025-05-14 14:04 | ESPR_ITS ---
Documentation for date of: 05/14/25 Subjective Subjective Interval history: Overnight events, labs reviewed. The patient examined this a.m. at bedside. The patient complaining of neck pain at the back of her head, which is chronic, worse on moving her head [id number]. Ordered a lidocaine patch, patient likely has chronic degenerative disc disease. She denied any dizziness vertigo or neurological deficits. Patient is pending placement at [facility], tomorrow. Will be discharged on p.o. antibiotics. Exam Vital Signs Temp Pulse Resp BP Pulse Ox O2 Del Method 97.6 F 64 18 119/63 95 Room Air 05/14/25 12:00 05/14/25 12:00 05/14/25 12:00 05/14/25 12:00 05/14/25 12:05/14/25 12:00 Narrative Exam Physical Exam General: Awake and in no acute distress. Conversational and non-toxic appearing. Very frail. HEENT: Normocephalic, atraumatic, mucous membranes moist. Heart: Regular rate and rhythm, normal S1 and S2. Grade 2 out of 6 systolic ejection murmur. Lungs: Clear to auscultation with no wheezing or crackles. Abdomen: Soft, nondistended, nontender, positive bowel sounds. No guarding or rebound tenderness. Neurologic: Alert and oriented x3, no gross neurological deficit, and patient able to move all 4 extremities. Extremities: No edema. Skin: No rash or ecchymoses. Objective Labs 05/13/25 04:42 05/13/25 04:42 Labs: Laboratory Results - last 24 hr 05/14/25 05:03 Phosphorus 4.4 Magnesium 1.8 Quality Measures Quality Measures VTE prophylaxis Advance care planning discussed with:: patient Assessment & Plan Assessment Current Active Medications: Generic Name Dose Route Start Last Admin Trade Name Freq PRN Reason Stop Dose Admin Acetaminophen 650 mg 05/09/25 21:16 05/14/25 13:57 Acetaminophen 325 Mg Tablet PO 06/08/25 21:15 650 mg Q6H PRN Administration Pain 1-3 and/or Fever >100.1 Alprazolam 0.5 mg 05/10/25 21:00 05/13/25 20:47 Alprazolam 0.25 Mg Tablet PO 05/15/25 20:59 0.5 mg HS MARY LOU Administration Amlodipine Besylate 10 mg 05/14/25 09:00 05/14/25 11:00 Amlodipine Besylate 5 Mg Tablet PO 06/13/25 08:59 Not Given QDAY MARY LOU Diclofenac Sodium 4 gm 05/14/25 05:52 Diclofenac 1% Top Gel 100 Gm Tube TOP 06/13/25 05:59 QID PRN Neck pain Heparin Sodium (Porcine) 5,000 unit 05/10/25 09:00 05/14/25 08:02 Heparin Sod Inj 5000 Unit/Ml Vial SC 05/24/25 08:59 5,000 unit Q12HR MARY LOU Administration Ceftriaxone Sodium/Dextrose 2 gm in 50 mls @ 100 mls/hr 05/12/25 09:00 05/14/25 08:02 Rocephin/D5w 2gm IV 05/19/25 08:59 100 mls/hr QDAY MARY LOU Administration Levothyroxine Sodium 88 mcg 05/10/25 06:00 05/14/25 05:41 Levothyroxine Sodium 88 Mcg Tablet PO 06/09/25 05:59 88 mcg ACBR MARY LOU Administration Ondansetron HCl 4 mg 05/09/25 21:16 Ondansetron Inj 2 Mg/Ml Inj 2 Ml IVP 06/08/25 21:15 Q6H PRN NAUSEA OR VOMITING Protocol Sennosides 1 tab 05/09/25 21:16 Senna Tablet PO 06/08/25 21:15 QDAY PRN constipation Protocol Sertraline HCl 200 mg 05/10/25 21:00 05/13/25 20:47 Sertraline Hcl 25 Mg Tablet PO 06/09/25 20:59 200 mg HS MARY LOU Administration Plan Patient is a 85-year-old female with past medical history of hypothyroidism, depression/anxiety, hyperlipidemia, left hip replacement presented to the ED on 05/09/25 with fever, weakness and increased urinary frequency , admitted for gram- negative bacteremia secondary to urinary tract infection, currently on IV ceftriaxone, and failure to thrive. Anticipate discharge to SNF tomorrow. # E. coli bacteremia, pansensitive # Urinary tract infection secondary to E. coli Presented on admission with urinary tract infection symptoms with increased weakness and increased urinary frequency. Associated with mild fever, elevated WBC count, Pro-Jani 2.28. Urinalysis 05/09 showed positive leukocyte esterase, nitrite, pyuria but no bacteria seen. Chest x-ray showed basilar bronchitis pattern. S/p IV ceftriaxone x1, azithromycin, and 1.25 L of NS in ED. WBC improving and patient feels better. Urine cultures positive for gram-negative almaz. Speciated to E. coli, pansensitive. Plan: - Continue IV ceftriaxone 1 g daily for 10?14 day course (05/10? ? Patient will be discharged on p.o. antibiotics for remaining duration of treatment. # Generalized weakness, likely secondary to UTI #Failure to thrive #BMI 17.9 Patient has been feeling weak since 05/04. At baseline, patient is able to ambulate using a walker but she has been largely bedbound since progression of symptoms. Of note, patient lives at home with son and has daughters that frequently check on her. - Per PT evaluation, patient requires rehab at SNF - Continue on cardiac diet with Ensure plus high-protein #Hypertensive urgency?resolved #Hypertension, labile Patient states that in the past has been told she is hypotensive which has been the reason she was referred to Dr. Soto. Presented to the ED in hypertensive urgency systolic 207 and diastolic 102, resolved without administration of clonidine. Blood pressure continues to be labile. Plan: - Monitor blood pressure -Started on amlodipine 5 mg daily, with instruction to hold if systolic is less than 120 - Follow up with collections associate outpatient for starting anti-hypertensives #Possible aortic stenosis No shortness of breath or cardiac symptoms on admission. On exam, patient does not appear volume overloaded (no lower extremity edema, lungs clear) but there is a grade 2 out of 6 systolic ejection murmur. EKG showed ectopic atrial rhythm with possible left atrial enlargement and incomplete right bundle branch block without any concerning ST changes. BNP mildly elevated at 200. Patient follows up with Dr. Soto outpatient and has recently completed outpatient cardiac stress test. Plan: - Follow-up with Dr. Soto once discharged #Hx of Hypothyroidism Patient on levothyroxine at home. Plan: - Resume home dose levothyroxine #Hx of Depression/anxiety Patient on alprazolam and sertraline per home medication list Plan: - Continue home dose alprazolam and sertraline #Normocytic anemia Differentials include iron deficiency anemia, anemia of chronic disease, iron or vitamin deficiency, less likely to be hemolytic anemia versus myelosuppression. Of note, hemoglobin has been 11-12 for the past year. Iron panel shows low iron, TIBC, iron saturation, likely iron deficiency anemia. Plan: - In light of current infection, will treat outpatient at a later time - Transfuse if hemoglobin less than 7 Health Maintenance: Lines: PIV Diet: Cardiac Bowel: Senna as needed GI prophylaxis: Not needed DVT prophylaxis: Heparin subcu Dispo: IV antibiotics for UTI, PT eval Code: DNR Plan of care discussed with attending Dr. Mis Roy PGY3 Attending Provider Attestation/Addendum Raegan John DO, attest that I was physically present for the garvey portions of the service and evaluated the patient with the resident and I reviewed and discussed the case with the resident and agree with the resident's findings and plans of care as documented above Patient seen and eval this a.m. She states that she is feeling well. She has no acute complaints at this time. Pending SNF placement. She complains of chronic neck pain, will place lidocaine patch. Cultures for E. coli UTI and bacteremia are pansensitive. Patient currently on Rocephin, can de-escalate to oral cephalosporin on discharge.
--- NOTE | 2025-05-14 19:03 | PC.NURSE ---
Pt. wondering why diclofenac topical gel PRN was never administered to her for neck pain. RN checked MAR and confirmed it was never administered. RN checked med room, but diclofenac topical gel cannot be found in the patient's cubby. RN attempeted to call pharmacy, but pharmacy did not answer.
[2025-05-14] MEDS: SERTRALINE HCL 25 MG TABLET 200 MG PO (20:06)
[2025-05-15] VITALS (8 sets, daily range): BP systolic 125–163; BP diastolic 57–90; PULSE 73–85; RESP 16–23; TEMP 36.4–36.8; O2SAT 95–97
[2025-05-15] MEDS: LEVOTHYROXINE SODIUM 88 MCG TABLET PO (05:07)
[2025-05-15] MEDS: cefTRIAXone/D5w 2gm 2 GM/50 ML BAG IV (09:47)
[2025-05-15] MEDS: HEPARIN SOD INJ 5000 UNIT/ML VIAL SC (09:47)
--- NOTE | 2025-05-15 11:03 | PC.NURSE ---
Patient's daughter is ride for discharge and does not get off work until 4pm.
--- NOTE | 2025-05-15 11:22 | PC.SS ---
SS has sent updated inquiry to SNF. Patient and daughter's preference is [facility]. SS spoke to Jamilah from [facility] who states they will accept pt. SS has sent [facility] on [facility]. Dtr will provide transportation after 4:30pm to [facility].
--- NOTE | 2025-05-15 11:51 | ESDS_ITS ---
<Statement entered by Adrian Sandoval MD - 05/22/25 14:18> I reviewed above note and agree with findings and plans. I have also personally examined the patient with medicine team and went over assessment and plan with medical team including commander internal affairs and resident physician. Planned Discharge Date 05/15/25 DS: Providers Provider Date of admission: 05/10/25 15:38 Primary care physician: Efrain Pride MD Admitting Provider: Iemr Johnson DO Attending Provider on Admission: Adrian Sandoval MD Consults: 05/09/25 22:59 Referral Physical Therapy Routine Comment: Physician Instructions: 05/10/25 09:00 Referral Physical Therapy Routine Comment: Physician Instructions: Attending Provider on DC: RESIDENT Rafael Discharging Provider: RESIDENT Rafael DS: Diagnosis Problem List Completed Was Problem List Reviewed/Reconciled?: Yes Hospital Course Hospital Course Hospital course: Addendum: Patient discharge was delayed due to pending SNF placement, arrangement with insurance. She continued to be medically stable throughout stay. Treated in patient with IV ceftriaxone, transition to antibiotic PO upon discharge. Summary: Patient is a 85-year-old female with past medical history of hypothyroidism, depression/anxiety, hyperlipidemia, left hip replacement presented to the ED on 05/09/25 with fever, weakness and increased urinary frequency , admitted for E coli bacteremia secondary to urinary tract infection, on IV ceftriaxone, and failure to thrive. Discharge to SNF. ED Course: In the ED, patient initially presented hypertensive 207/102, regular heart rate, respiratory rate 17, mildly febrile 99.7 ?F, saturating 93 on room air. Pertinent lab findings included WBC of 13.4, hemoglobin 11.3 with MCV of 95, BUN 21, creatinine 1.2, glucose 124, lactic acid 1.1, troponin 0.02, BNP 200, Pro-Jani 2.28, TSH 0.99 and free T41.56. Urinalysis showed positive leukocyte esterase, nitrite, pyuria but no bacteria seen. Chest x-ray showed basilar bronchitis pattern EKG showed ectopic atrial rhythm with possible left atrial enlargement and incomplete right bundle branch block without any concerning ST changes. Reason for hospitalization: Patient is an 85-year-old female that presented with fever, generalized weakness , and increased urinary frequency. Found to have E. coli UTI, blood culture later showed that patient had gram-negative bacteremia, likely also E. coli. Patient was treated with IV ceftriaxone since admission on 05/09. She will need to continue cefuroxime 500 mg twice daily for another 6 to 10 days after discharge. Patient presented with BMI of 17.9, PT was consulted and recommended discharge to SNF for rehabilitation. Patient's blood pressure was hypertensive and labile throughout stay. Started on amlodipine 5 mg daily, may consider starting secondary hypertensive medication outpatient. Patient follows up with Dr. Soto for possible aortic stenosis, consider cardiac stress test at a later time. Resume all other home medications. Of note patient had normocytic anemia, based on iron panel likely iron deficiency anemia. Will defer treatment at a later time given current bacteremia. Discharge Recommendations: - Please continue antibiotics for 10 more days for your urinary tract infection and blood stream infection - Please take anti-hypertensive medication, Amlodipine 5 mg once daily. Please skip dose if systolic blood Pressure less than 120 - Continue all other medication as prescribed -Please follow up with your primary care provider within one week of discharge -If your symptoms worsen,please seek immediate medical attention and return to your nearest emergency room -If you do not have a primary care provider, you [facility] follow up [facility], [place] [address], Hospital Diagnoses: #Urinary tract infection #GNR bacteremia, secondary to above # Generalized weakness, likely secondary to UTI #Failure to thrive #BMI 17.9 #Hypertensive urgency?resolved #Hypertension, labile #Possible aortic stenosis #Hx of Hypothyroidism #Hx of Depression/anxiety #Normocytic anemia Disposition: Safe discharge to SNF. Senior resident attestation: Patient evaluated and examined at the bedside, plan of care discussed with rest of the team including my attending physician, except as noted. Kirill PGY3 Time Spent with Patient Time attestation: Total time spent providing and/or coordinating discharge services: at least 30 minutes of care coordination Time spent: Greater than 30 minutes Exam Vital Signs Temp Pulse Resp BP Pulse Ox O2 Del Method 97.7 F 77 17 149/90 H 95 Room Air 05/15/25 08:00 05/15/25 09:58 05/15/25 08:00 05/15/25 09:47 05/15/25 08:00 05/15/25 08:00 Narrative Exam Physical Exam General: Awake and in no acute distress. Conversational and non-toxic appearing. Very frail. HEENT: Normocephalic, atraumatic, mucous membranes moist. Heart: Regular rate and rhythm, normal S1 and S2. Grade 2 out of 6 systolic ejection murmur. Lungs: Clear to auscultation with no wheezing or crackles. Abdomen: Soft, nondistended, nontender, positive bowel sounds. No guarding or rebound tenderness. Neurologic: Alert and oriented x3, no gross neurological deficit, and patient able to move all 4 extremities. Extremities: No edema. Skin: No rash or ecchymoses. Discharge Plan Plan Patient Disposition: Xfer Skilled Nsg Fac (SNF) Care Plan Goals: Instructions: Please continue antibiotics for 10 more days for your urinary tract infection and blood stream infection Please take anti-hypertensive medication, Amlodipine 5 mg once daily. Please skip dose if systolic Blood Pressure less than 120 continue all other medication as prescribed -Please follow up with your primary care provider within one week of discharge -If your symptoms worsen,please seek immediate medical attention and return to your nearest emergency room -If you do not have a primary care provider, you may follow up at the [facility] at [address], [place] [address], Prescriptions/Referrals Prescriptions/Med Rec: New amlodipine 5 mg Tablet 5 mg PO QDAY 30 Days Qty: 30 0RF Rx Instructions: Please skip dose if systolic blood pressure less than 120 cefuroxime axetil 500 mg tablet 500 mg PO BID 10 Days Qty: 20 0RF Continued multivitamin [Multiple Vitamins] Tablet 1 tab PO QDAY levothyroxine 88 mcg Tablet 88 mcg PO QDAY sertraline 100 mg Tablet 200 mg PO QDAY calcium carbonate-vitamin D3 [Calcium 600 + D(3)] 600 mg(1,500mg) -200 unit Tablet 1 tab PO QDAY simvastatin 20 mg tablet 20 mg PO QAM alprazolam 0.5 mg tablet 0.25 mg PO DAILY Referrals: Efrain Pride MD [Primary Care Provider] - Patient/Caregiver Discharge Instructions Print Language: French Stand Alone Forms: Kiki Award Info., Patient Portal Info Letter Discharge Order Discharge Orders: Discharge (Routine); Ordered 05/15/25 Ordered By: Mya Vicente Quality Discharge Quality Measures VTE prophylaxis
[2025-05-15] MEDS: ACETAMINOPHEN 325 MG TABLET 650 MG PO (14:24)
--- NOTE | 2025-05-15 14:58 | PC.NURSE ---
Report given to SNF nurse Addison at [facility].
== END 2025-05-15 16:34 | disposition skilled nursing facility (03) | DRG 690 ==
LOC: SERX 20:51 → SERHOLD 22:36 → S3NX 05-10 06:36 → SERHOLD 05-11 05:22 → S3NX 05-11 05:23
PROVIDERS: Admitting Provider Student in an Organized Health Care Education/Training Program; Emergency Provider Emergency Medicine; PCP Family Medicine; Visit Provider Internal Medicine
DX: N39.0 Urinary tract infection, site not specified (principal); Z68.1 Body mass index [BMI] 19.9 or less, adult; F41.9 Anxiety disorder, unspecified; F32.A Depression, unspecified; Z96.642 Presence of left artificial hip joint; E78.00 Pure hypercholesterolemia, unspecified; E03.9 Hypothyroidism, unspecified; I10 Essential (primary) hypertension; J40 Bronchitis, not specified as acute or chronic; I16.0 Hypertensive urgency; D64.89 Other specified anemias; D50.9 Iron deficiency anemia, unspecified; G89.29 Other chronic pain; Z66 Do not resuscitate; Z79.890 Hormone replacement therapy; R62.7 Adult failure to thrive; Z74.01 Bed confinement status
CPT/HCPCS: 36415; 71045; 80053; 81001; 82010; 82150; 82248; 82728; 83540; 83550; 83605; 83690; 83735; 83880; 84100; 84145; 84439; 84443; 84484; 85025; 85046; 85652; 86140; 87040; 87077; 87086; 87186; 87400; 87811; 93225; 96365; 96366; 96375; 97162; G0378; J0131; J0456; J0696; J1644; J1885; J3475; J3490; J7030; J7050; J7120; A9270

== ENCOUNTER → 2025-05-09 | Outpatient (CLI) | payer MEDICARE, SELFPAY ==
[2025-05-09 15:48] LABS: Collection Type, Urine Clean Catch; Squamous Epithelial Cell,Urine 0 /hpf (0-5)
[2025-05-09 18:25] LABS: Bacteria,Urine Rare; Bilirubin,Urine Negative (Negative); Blood,Urine 1+ (Negative); Clarity,Urine Turbid (Clear/Hazy); Color,Urine Lt-Yellow (Lt Yel-Yel); Glucose, Urine Negative (Negative); Ketones,Urine Negative (Negative); Leukocyte Esterase,Urine Positive (Negative); Nitrite,Urine Positive (Negative); PH,Urine 7.0 (5.0-7.0); Protein,Urine 1+ (Neg - Trace); RBC,Urine 46 /hpf (0-3); Specific Gravity,Urine 1.012 (1.001-1.035); Urobilinogen,Urine Negative mg/dL (0.0-1.0); WBC,Urine 105 /hpf (0-5)
[2025-05-09 18:29] LABS: Culture Indicated,Urine Yes
== END | disposition home or self-care (01) ==
PROVIDERS: PCP Internal Medicine; Referring Provider Internal Medicine; Visit Provider Internal Medicine
DX: R32 Unspecified urinary incontinence (principal)
CPT/HCPCS: 81001; 87077; 87086; 87186

== ENCOUNTER → 2025-07-21 | Outpatient (CLI) | payer MEDICARE, SELFPAY ==
[2025-07-21 11:29] LABS: Basophils # (Auto) 0.0 Thou/mm3 (0.0-0.2); Basophils % (Auto) 1 % (0-2.5); Eosinophils # (Auto) 0.1 Thou/mm3 (0.0-0.5); Eosinophils % (Auto) 1 % (0-10); Hematocrit 35.9 % (36.0-46.0); Hemoglobin 11.4 g/dL (12.0-16.0); Immature Granulocytes Auto 0.03 Thou/mm3 (0.00-0.00); Lymphocytes # (Auto) 2.9 Thou/mm3 (1.0-4.8); Lymphocytes % (Auto) 39 % (10-50); Mean Corpuscular HGB Conc 31.8 g/dl (31.0-37.0); Mean Corpuscular Hemoglobin 31.3 pg (25.0-35.0); Mean Corpuscular Volume 99 fL (80-100); Monocytes # (Auto) 0.3 Thou/mm3 (0.0-0.8); Monocytes % (Auto) 4 % (0-12); Neutrophils # (Auto) 4.0 Thou/mm3 (1.8-7.7); Neutrophils % (Auto) 55 % (37-80); Nucleated Red Blood Cell # 0.00 Thou/mm3 (0.00-0.00); Nucleated Red Blood Cell % 0 /100 WBC (0); Platelet Count 322 Thou/mm3 (140-440); RDW Standard Deviation 49.9 fL (36.4-46.3); Red Blood Count 3.64 Miln/mm3 (4.00-5.20); White Blood Count 7.3 Thou/mm3 (3.6-11.0)
[2025-07-21 11:46] LABS: Glucose Estimated Average 111 mg/dL (80-131); Hemoglobin A1C 5.5 % Hgb (4.8-6.0)
[2025-07-21 11:56] LABS: Alanine Aminotransferase 12 U/L (10-49); Albumin, Serum 4.5 gm/dL (3.4-4.8); Albumin/Globulin Ratio 1.8 (1.2-2.2); Alkaline Phosphatase 67 U/L (46-116); Anion Gap 9 (7-16); Aspartate Amino Transferase 25 U/L (0-34); BUN/Creatinine Ratio 25 Ratio (12-20); Bilirubin,Total 0.3 mg/dL (0.3-1.2); Blood Urea Nitrogen 25 mg/dL (9-23); Calcium 9.8 mg/dL (8.3-10.6); Calcium (Corrected) 9.8 mg/dL (8.5-10.1); Carbon Dioxide 29.1 mMol/L (20.0-31.0); Cardiac Risk Estimate 2.4 RATIO (3.7-5.6); Chloride 106 mMol/L (98-107); Cholesterol 179 mg/dL (132-200); Creatinine (Component) 1.0 mg/dL (0.6-1.3); Globulin 2.5 gm/dL (2.3-3.5); Glucose 82 mg/dL (74-106); HDL Cholesterol 75 mg/dL (40-60); LDL Cholesterol,Calculated 79 mg/dL (0-130); Osmolality,Calculated 290 (275-295); Potassium 4.7 mMol/L (3.4-5.1); Sodium 144 mMol/L (136-145); Thyroid Stimulating Hormone 1.16 uIU/mL (0.55-4.78); Total Protein 7.0 gm/dL (5.7-8.2); Triglycerides 124 mg/dL (30-150); eGFR 56 See Note
[2025-07-21 12:11] LABS: Amphetamine/Methamp Scrn,U Negative (Negative); Barbiturate Screen,Urine Negative (Negative); Benzodiazepines Screen,Urine Positive (Negative); Benzoylecgonine Screen, Ur Negative (Negative); Fentanyl Screen,Urine Negative (Negative); Opiate Screen,Urine Negative (Negative); THC Screen,Urine Negative (Negative)
== END | disposition home or self-care (01) ==
LOC: COPL 10:42
PROVIDERS: PCP Internal Medicine; Referring Provider Internal Medicine; Visit Provider Internal Medicine
DX: F41.9 Anxiety disorder, unspecified (principal); E78.5 Hyperlipidemia, unspecified; E03.9 Hypothyroidism, unspecified
CPT/HCPCS: 36415; 80053; 80061; 80307; 83036; 84443; 85025